=== PATIENT | female | born 1965 | race Caucasian/White ===

== ENCOUNTER 2017-11-28 13:25 | Observation (INO) | payer OTHER ==
[2017-11-28 13:38] VITALS: BMI 28.1
[2017-11-28] MEDS ORDERED: KETOROLAC TROMETHAMINE 30 MG/1 ML VIAL IVPUSH ONE (14:04)
[2017-11-28] MEDS ORDERED: METOCLOPRAMIDE HCL INJECTION 10 MG/2 ML VIAL IVPB ONE (14:04)
--- NOTE | 2017-11-28 14:23 | PDOC ---
History of Present Illness - General Chief Complaint: Headache Stated Complaint: HEADACHE, THROAT PAIN Time Seen by Provider: 11/28/17 13:49 History Source: Patient - History of Present Illness Timing/Duration: reports: other Severity: Yes: severe Past History - Past Medical History Allergies/Adverse Reactions: Allergies Allergy/AdvReac Type Severity Reaction Status Date / Time No Known Allergies Allergy Verified 11/28/17 13:34 Home Medications: Ambulatory Orders Methimazole 10 mg PO TID 11/28/17 Metoprolol Succinate 25 mg PO DAILY 11/28/17 COPD: No - Suicide/Smoking/Psychosocial Hx Smoking History: Never smoked Information on smoking cessation initiated: No Hx Alcohol Use: No Drug/Substance Use Hx: No Substance Use Type: None Hx Substance Use Treatment: No Review of Systems - Review of Systems Constitutional: No: Chills, Fever HEENTM: No: Blurred Vision ABD/GI: No: Nausea, Vomiting Neurological: Yes: Headache. No: Dizziness *Physical Exam - Vital Signs Last Vital Signs Temp Pulse Resp BP Pulse Ox 97.8 F 85 18 121/79 100 11/28/17 13:36 11/28/17 13:36 11/28/17 13:36 11/28/17 13:36 11/28/17 13:36 - Physical Exam General Appearance: Yes: Appropriately Dressed. No: Apparent Distress HEENT: positive: EOMI, VANDANA Neck: positive: Supple, Other (mod swelling over L thyroid). negative: Tender, Lymphadenopathy (R), Lymphadenopathy (L) Respiratory/Chest: negative: Respiratory Distress Integumentary: positive: Dry, Warm Neurologic: positive: mobile disc jockey II-XII NML intact, Fully Oriented, Alert, Normal Mood/ Affect, Motor Strength 5/5, Finger to Nose (no nystagmus, Shaji intact, no ataxia , no drift). negative: Confused, Disoriented ED Treatment Course - LABORATORY CBC & Chemistry Diagram: 11/28/17 14:45 11/28/17 14:45 - RADIOLOGY Radiology Studies Ordered: Category Date Time Status HEAD CT WITHOUT CONTRAST [CT] Stat CT Scan 11/28/17 14:04 Ordered Medical Decision Making - Medical Decision Making 11/28/17 14:14 42-year-old female, history of HTN, hyperthyroid on methimazole, here with headache. Patient complain of severe pain to occipital area and top of head x days. Describes pain as tight in nature, constant, 10 out of 10 with no exacerbating or alleviating factors. States she also has numbness of lower half of her face. No pain with chewing, visual disturbance, photophobia, neck stiffness, fever, n/v, focal weakness or unexplained weight loss. Taking anything for pain. No history of similar pain in the past. States she was started on methimazole 2 weeks ago after blood work per pt. Thinks that GORDON may be possible side effects See exam New onset GORDON in 52 year old R/o TA though story not great vs intracranial pathology, less likely trigeminal neuralgia, no infectious sxs, ?tension given mostly diffuse nature of pain, less likely migraine Uncomfortable in ED but stable with intact neurological exam -pain control -labs including ESR -CT head -reassess Neck swelling Moderate swelling over L side of neck over site of thyroid Pt now reports chronic sore throat/dysphagia w/ neck swelling >1 yr, no unexplained weight loss Started on methimazole 2 weeks ago after blood work by Dr Patricia per pt Denies anxiety, numbness, tremor, palpitations, heat intolerance, increased per private perspiration weight loss or increased appetite -thyroid test/US in ED 11/28/17 15:59 Radiologist called to report that for the past 6 months, they no longer perform thyroid ultrasounds through the ER. Will scan neck instead 11/28/17 16:32 TSH less than 0.01. T3 and T4 pending. Pt states she is compliant w/ her meds. Rest of labs unremarkable. CT head read as negative. CT neck pending. Patient improved with meds. 11/28/17 16:54 CT soft tissue neck read as approximately 5.743.7 cm left thyroid lobe enlargement with soft tissue and cystic components. Also seen is mild contralateral tracheal displacement. No substernal extension as per radiology. Given findings and significantly decreased TSH, will contact PMD to discuss dispo 11/28/17 17:59 After multiple pages to Dr Patricia, no call back. Case d/w Dr Conde who accepted pt. Recommended consult to Dr Rosa of oncology and endocrine. Pt stable w/ no stridor/resp distress. GORDON since improved per pt *DC/Admit/Observation/Transfer Diagnosis at time of Disposition: Headache, Thyroid mass - Discharge Dispostion Condition at time of disposition: Fair Admit: Yes - Referrals - Patient Instructions - Post Discharge Activity
[2017-11-28] MEDS ORDERED: KETOROLAC TROMETHAMINE 30 MG/1 ML VIAL ONE (14:50)
[2017-11-28] MEDS ORDERED: METOCLOPRAMIDE HCL INJECTION 10 MG/2 ML VIAL ONE (14:50)
[2017-11-28 14:52] LABS: BASO % 0.6 % (0-2.0); EOS % 1.5 % (0-4.5); HEMATOCRIT 38.8 % (32.4-45.2); HEMOGLOBIN 13.3 GM/dL (10.7-15.3); LYMPH % 34.4 % (8-40); MCH 27.1 pg (25.7-33.7); MCHC 34.2 g/dl (32.0-36.0); MEAN CELL VOLUME 79.2 fl (80-96); MEAN PLT VOLUME 8.5 fl (7.5-11.1); NEUT % 57.5 % (42.8-82.8); PLATELET COUNT 285 K/MM3 (134-434); RDW 13.3 % (11.6-15.6); WHITE BLOOD COUNT 5.7 K/mm3 (4.0-10.0)
[2017-11-28 15:19] LABS: ALBUMIN 3.7 g/dl (3.4-5.0); ALK PHOS 96 U/L (45-117); ANION GAP 2 (8-16); BILIRUBIN,TOTAL 0.2 mg/dL (0.2-1.0); BLOOD UREA NITROGEN 17 mg/dL (7-18); CALCIUM 9.2 mg/dL (8.5-10.1); CHLORIDE 109 mmol/L (98-107); CO2 28 mmol/L (21-32); CREATININE 0.6 mg/dL (0.55-1.02); GLUCOSE,RANDOM 98 mg/dL (74-106); SGPT/ALT 31 U/L (12-78); SODIUM 139 mmol/L (136-145); TOT PROT 7.2 g/dl (6.4-8.2)
[2017-11-28 15:20] LABS: POTASSIUM 4.6 mmol/L (3.5-5.1); SGOT/AST 22 U/L (15-37)
--- NOTE | 2017-11-28 21:11 | CONSULT ---
Consult - text type - Consultation Consultation Note: 52 y/opatient with recently diagnosed hyperthyroidism, just started methimazole recently, comes in with headaches. CT head is unrevaling. CT soft tissue neck read as approximately 5.743.7 cm left thyroid lobe enlargement with soft tissue and cystic components. Also seen is mild contralateral tracheal displacement. No substernal extension. Allergies Allergy/AdvReac Type Severity Reaction Status Date / Time No Known Allergies Allergy Verified 11/28/17 13:34 Home Medications: Ambulatory Orders Methimazole 10 mg PO TID 11/28/17 Metoprolol Succinate 25 mg PO DAILY 11/28/17 - Suicide/Smoking/Psychosocial Hx Smoking History: Never smoked - Vital Signs Last Vital Signs Temp Pulse Resp BP Pulse Ox 97.8 F 85 18 121/79 100 11/28/17 13:36 11/28/17 13:36 11/28/17 13:36 11/28/17 13:36 11/28/17 13:36 - Physical Exam General Appearance: Yes: Appropriately Dressed. No: Apparent Distress Neck: positive: Supple, Other (mod swelling over L thyroid). negative: Tender, Lymphadenopathy (R), Lymphadenopathy (L) Respiratory/Chest: negative: Respiratory Distress Cardiac--S1, S2 regular, no m/r/g Chest-- CTA Neurologic: positive: floorperson II-XII NML intact, Fully Oriented, Alert, Normal Mood/ Affect, Motor Strength 5/5, Finger to Nose (no nystagmus, Shaji intact, no ataxia , no drift). negative: Confused, Disoriented A/P 42-year-old female, history of HTN, hyperthyroid on methimazole, here with headache. New onset GORDON in [address] head unrevealing will need NEuro consult / ? MRI Thyromegaly--left lobe Pt now reports chronic sore throat/dysphagia w/ neck swelling >1 yr, no unexplained weight loss Started on methimazole 2 weeks ago after blood work by Dr Patricia per pt TSH less than 0.01. T3 and T4 pending. CT soft tissue neck read as approximately 5.743.7 cm left thyroid lobe enlargement with soft tissue and cystic components. Also seen is mild contralateral tracheal displacement. No substernal extension as per radiology. will get endocrine consult-- Dr. Huntley
--- NOTE | 2017-11-28 21:51 | HP ---
Admitting History and Physical - Primary Care Physician PCP: Frank Conde - Admission History of Present Illness: 42-year-old female, history of HTN, hyperthyroid on methimazole, here with headache. Patient complain of severe pain to occipital area and top of head x days. Describes pain as tight in nature, constant, 10 out of 10 with no exacerbating or alleviating factors. States she also has numbness of lower half of her face. No pain with chewing, visual disturbance, photophobia, neck stiffness, fever, n/v, focal weakness or unexplained weight loss. Taking anything for pain. No history of similar pain in the past. States she was started on methimazole 2 weeks ago after blood work per pt. Thinks that GORDON may be possible side effects reading further er notes, dr soares didnt believe that pt needed to be admitted ...he said dc with fu dr pierce er attending not comfortable sending pt home - Past Medical History Cardiovascular: Yes: HTN Endocrine: Yes: Hyperthyroidism - Smoking History Smoking history: Never smoked - Alcohol/Substance Use Hx Alcohol Use: No Home Medications - Allergies Allergies/Adverse Reactions: Allergies Allergy/AdvReac Type Severity Reaction Status Date / Time No Known Allergies Allergy Verified 11/28/17 13:34 - Home Medications Home Medications: Ambulatory Orders Methimazole 10 mg PO TID 11/28/17 Metoprolol Succinate 25 mg PO DAILY 11/28/17 Amox-Tr/K Cl [Augmentin 875-125mg Tablet -] 1 tab PO BID@0800,1730 5 Days #20 tablet 11/30/17 Aripiprazole [Abilify -] 2 mg PO DAILY #30 tablet 11/30/17 Physical Examination Vital Signs: Vital Signs Temperature 98.2 F 11/28/17 19:53 Pulse Rate 60 11/28/17 19:53 Respiratory Rate 20 11/28/17 19:53 Blood Pressure 133/73 11/28/17 19:53 O2 Sat by Pulse Oximetry (%) 96 11/28/17 20:28 Constitutional: Yes: No Distress HENT: Yes: Atraumatic Neck: Yes: Supple, Thyromegaly Cardiovascular: Yes: Regular Rate and Rhythm Respiratory: Yes: CTA Bilaterally Gastrointestinal: Yes: Normal Bowel Sounds Extremities: Yes: WNL Edema: No Peripheral Pulses WNL: Yes Neurological: Yes: Alert, Oriented Labs: CBC, BMP 11/28/17 14:45 11/28/17 14:45 Problem List - Problems (1) Hyperthyroidism Assessment/Plan: on meds get endocrine involve Code(s): E05.90 - THYROTOXICOSIS, UNSP WITHOUT THYROTOXIC CRISIS OR STORM (2) HTN (hypertension) Assessment/Plan: on meds stable Code(s): I10 - ESSENTIAL (PRIMARY) HYPERTENSION (3) Headache Assessment/Plan: prn tylenol Code(s): R51 - HEADACHE (4) Thyroid mass Assessment/Plan: need work up Code(s): E07.9 - DISORDER OF THYROID, UNSPECIFIED Assessment/Plan Laboratory Tests 11/28/17 11/28/17 11/28/17 14:45 14:45 14:45 WBC 5.7 RBC 4.90 Hgb 13.3 Hct 38.8 MCV 79.2 L MCH 27.1 MCHC 34.2 RDW 13.3 Plt Count 285 MPV 8.5 Neutrophils % 57.5 Lymphocytes % 34.4 D Monocytes % 6.0 Eosinophils % 1.5 Basophils % 0.6 ESR 12 Sodium Potassium Chloride Carbon Dioxide Anion Gap BUN Creatinine Creat Clearance w eGFR Random Glucose Calcium Total Bilirubin AST ALT Alkaline Phosphatase Total Protein Albumin TSH Resin T3 Uptake Serum , Qual Negative 11/28/17 11/28/17 11/28/17 14:45 15:00 15:05 WBC RBC Hgb Hct MCV MCH MCHC RDW Plt Count MPV Neutrophils % Lymphocytes % Monocytes % Eosinophils % Basophils % ESR Sodium 139 Potassium 4.6 Chloride 109 H Carbon Dioxide 28 Anion Gap 2 L BUN 17 Creatinine 0.6 Creat Clearance w eGFR > 60 Random Glucose 98 Calcium 9.2 Total Bilirubin 0.2 D AST 22 ALT 31 Alkaline Phosphatase 96 Total Protein 7.2 Albumin 3.7 TSH < 0.01 L Resin T3 Uptake 37.5 Serum , Qual Active Medications Generic Name Dose Route Start Last Admin Trade Name Freq PRN Reason Stop Dose Admin Amoxicillin/Clavulanate Potassium 1 tab 11/29/17 17:30 11/30/17 17:17 Augmentin - 875mg Tablet PO 1 tab BID@0800,1730 CELY Administration Aripiprazole 2 mg 11/29/17 19:00 11/30/17 09:04 Abilify PO 2 mg DAILY CELY Administration Methimazole 10 mg 11/28/17 22:00 11/30/17 13:16 Tapazole - PO 10 mg TID CELY Administration Metoprolol Succinate 25 mg 11/29/17 10:00 11/30/17 09:04 Toprol Xl - PO 25 mg DAILY CELY Administration
[2017-11-28] MEDS: METHIMAZOLE 10 MG TABLET (FP) PO SCH (23:11)
[2017-11-29] MEDS: METHIMAZOLE 10 MG TABLET (FP) PO SCH ×3 (06:16→21:36)
[2017-11-29] MEDS: metoPROLOL SUCCINATE 25 MG TAB.SR.24H (FP) PO SCH (09:36)
--- NOTE | 2017-11-29 15:45 | CON.ID ---
Consult Consult Specialty:: infectious diseases Reason for Consultation:: thyroididts,neck pain - History of Present Illness Chief Complaint: pain in the throat,headaches History of Present Illness: 42-year-old female, history of HTN, hyperthyroid on methimazole, here with headache. Patient complain of severe pain to occipital area and top of head x days. Describes pain as tight in nature, constant, 10 out of 10 with no exacerbating or alleviating factors. States she also has numbness of lower half of her face. No pain with chewing, visual disturbance, photophobia, neck stiffness, fever, n/v, focal weakness or unexplained weight loss. Taking anything for pain. No history of similar pain in the past. States she was started on methimazole 2 weeks ago after blood work per pt. Thinks that GORDON may be possible side effects other complain that the patient has is neck pain and she has swelling on the left side of the neck she says she feels temp changes in her teeth but she has been to the dentist who said everything was ok also c/o of cough - History Source History Provided By: Patient Limitations to Obtaining History: Language Barrier - Past Medical History Cardio/Vascular: Yes: HTN Endocrine: Yes: Hyperthyroidism - Alcohol/Substance Use Hx Alcohol Use: No - Smoking History Smoking history: Never smoked Home Medications - Allergies Allergies/Adverse Reactions: Allergies Allergy/AdvReac Type Severity Reaction Status Date / Time No Known Allergies Allergy Verified 11/28/17 13:34 - Home Medications Home Medications: Ambulatory Orders Amox-Tr/K Cl [Augmentin 875-125mg Tablet -] 1 tab PO BID@0800,1730 5 Days #20 tablet 11/30/17 Aripiprazole [Abilify -] 2 mg PO DAILY #30 tablet 11/30/17 Amoxicillin/Potassium Clav [Augmentin 875-125 Tablet] 1 each PO BID #8 tablet Aripiprazole [Abilify -] 2 mg PO DAILY #7 tablet 12/01/17 Methimazole 10 mg PO TID #21 tablet 12/01/17 Methimazole [Tapazole -] 10 mg PO TID #90 tablet 12/01/17 Metoprolol Succinate 25 mg PO DAILY #30 tab.er.24h 12/01/17 Metoprolol Succinate [Toprol XL -] 25 mg PO DAILY #7 tab.sr.24h 12/01/17 Review of Systems - Review of Systems Constitutional: reports: No Symptoms Eyes: reports: No Symptoms HENT: reports: No Symptoms Neck: reports: Lumps (left side of the neck) Cardiovascular: reports: No Symptoms Respiratory: reports: Cough Gastrointestinal: reports: No Symptoms Musculoskeletal: reports: No Symptoms Neurological: reports: Headache Endocrine: reports: No Symptoms Hematology/Lymphatic: reports: No Symptoms Psychiatric: reports: No Symptoms Physical Exam Vital Signs: Vital Signs Temperature 98.5 F 11/29/17 13:08 Pulse Rate 66 11/29/17 13:08 Respiratory Rate 17 11/29/17 13:08 Blood Pressure 109/58 11/29/17 13:08 O2 Sat by Pulse Oximetry (%) 97 11/29/17 05:51 Constitutional: Yes: Well Nourished, Calm, Mild Distress Eyes: Yes: Conjunctiva Clear HENT: Yes: Atraumatic, Other Neck: Yes: Supple, Other (sweling on the left side of the neck) Cardiovascular: Yes: Regular Rate and Rhythm Respiratory: Yes: Regular, CTA Bilaterally Gastrointestinal: Yes: Normal Bowel Sounds, Soft Musculoskeletal: Yes: WNL Extremities: Yes: WNL Neurological: Yes: Alert, Oriented Psychiatric: Yes: Alert, Oriented Labs: CBC, BMP 11/28/17 14:45 11/28/17 14:45 Imaging - Results Cat Scan: Report Reviewed, Image Reviewed Assessment/Plan Problem List - Problems (1) Hyperthyroidism Assessment/Plan: on meds get endocrine involve Code(s): E05.90 - THYROTOXICOSIS, UNSP WITHOUT THYROTOXIC CRISIS OR STORM (2) HTN (hypertension) Assessment/Plan: on meds stable Code(s): I10 - ESSENTIAL (PRIMARY) HYPERTENSION (3) Headache Assessment/Plan: prn tylenol Code(s): R51 - HEADACHE (4) Thyroid mass Assessment/Plan: need work up Code(s): E07.9 - DISORDER OF THYROID, UNSPECIFIED plan will order a chest xray will start patient on augmentin endo to see the patient neuro to see the patient for headache
--- NOTE | 2017-11-29 17:36 | PN ---
Mental Health Exam - Mental Status Exam Alert and Oriented to: Time, Place, Person Cognitive Function: Grossly Intact Patient Appearance: Unkempt Mood: Apprehensive, Expansive Affect: Appropriate, Mood Congruent Patient Behavior: Distractible, Talkative, Cooperative Speech Pattern: Perseverating (ACCENTED, FOCUSED ON NECK SWELLING, BODY COMPLAINTS. ) Voice Loudness: Moderately Loud (UKRAINE ACCENT. ) Thought Process: Circumstantial, Tangential, Goal Oriented Thought Disorder: Delusional (THAT THE SUN IS CAUSING HER ILLNESS. ) Hallucinations: None Suicidal Ideation: None Homicidal Ideation: None
--- NOTE | 2017-11-29 17:42 | PN ---
Progress Note, Physician Chief Complaint: :" I CANNOT STAY IN THE SUN, LOOK AT MY NECK AND HEAD". "I CANT BE GOING BACK TO [facility] [place] PSYCHI[facility]ST, NEED ONE NEAR HERE". History of Present Illness: mS Shell IS A 42 yo [place] female who resident in [place], unemployed except cleaning house when feeling well. She has a history of being followed by Dr Rodriguez in [place], . Was treated with Abilify 2mg for Bipolar disorder , No admissions to psychiatry. Little social supports. Sleep is ok. admitted after some throbbing occipital headaches, no alchol or substance use. Medical history of HTN, Hyperthyroidism and thyroid mass. - Current Medication List Current Medications: Active Medications Amoxicillin/Clavulanate Potassium (Augmentin - 875mg Tablet) 1 tab PO BID@0800, 1730 [facility] Methimazole (Tapazole -) 10 mg PO TID [facility] Last Admin: 11/29/17 13:19 Dose: 10 mg Metoprolol Succinate (Toprol Xl -) 25 mg PO DAILY [facility] Last Admin: 11/29/17 09:36 Dose: 25 mg - Objective Vital Signs: Vital Signs Temperature 98.5 F 11/29/17 13:08 Pulse Rate 66 11/29/17 13:08 Respiratory Rate 17 11/29/17 13:08 Blood Pressure 109/58 11/29/17 13:08 O2 Sat by Pulse Oximetry (%) 96 11/29/17 13:00 Psychiatric: Yes: WNL Labs: CBC, BMP 11/28/17 14:45 11/28/17 14:45 Problem List - Problems (1) Bipolar 1 disorder, depressed, mild Code(s): F31.31 - BIPOLAR DISORDER, CURRENT EPISODE DEPRESSED, MILD Assessment/Plan Restart abilify 2mg per day for delusional content, past history of bipolar disorder. Follow up with psychiatry after discharge.
[2017-11-29] MEDS: AMOX TR/POT CLAV 875MG/125MG TABLETS (FP) PO SCH (17:44)
--- NOTE | 2017-11-29 18:57 | PN ---
Progress Note, Physician - Current Medication List Current Medications: Active Medications Amoxicillin/Clavulanate Potassium (Augmentin - 875mg Tablet) 1 tab PO BID@0800, 1730 [facility] Last Admin: 11/29/17 17:44 Dose: 1 tab Aripiprazole (Abilify) 2 mg PO DAILY [facility] Methimazole (Tapazole -) 10 mg PO TID [facility] Last Admin: 11/29/17 13:19 Dose: 10 mg Metoprolol Succinate (Toprol Xl -) 25 mg PO DAILY [facility] Last Admin: 11/29/17 09:36 Dose: 25 mg - Objective Vital Signs: Vital Signs Temperature 98.5 F 11/29/17 13:08 Pulse Rate 66 11/29/17 13:08 Respiratory Rate 17 11/29/17 13:08 Blood Pressure 109/58 11/29/17 13:08 O2 Sat by Pulse Oximetry (%) 96 11/29/17 13:00 Constitutional: Yes: No Distress Eyes: Yes: Conjunctiva Clear HENT: Yes: Atraumatic Neck: Yes: Thyromegaly Cardiovascular: Yes: Regular Rate and Rhythm Respiratory: Yes: CTA Bilaterally Gastrointestinal: Yes: Normal Bowel Sounds Extremities: Yes: WNL Neurological: Yes: Alert, Oriented Labs: CBC, BMP 11/28/17 14:45 11/28/17 14:45 Problem List - Problems (1) Hyperthyroidism Assessment/Plan: on meds get endocrine involve Code(s): E05.90 - THYROTOXICOSIS, UNSP WITHOUT THYROTOXIC CRISIS OR STORM (2) HTN (hypertension) Assessment/Plan: on meds stable Code(s): I10 - ESSENTIAL (PRIMARY) HYPERTENSION (3) Headache Assessment/Plan: prn tylenol Code(s): R51 - HEADACHE (4) Thyroid mass Assessment/Plan: need work up Code(s): E07.9 - DISORDER OF THYROID, UNSPECIFIED (5) Bipolar 1 disorder, depressed, mild Assessment/Plan: on abilify now Code(s): F31.31 - BIPOLAR DISORDER, CURRENT EPISODE DEPRESSED, MILD
[2017-11-29] MEDS ORDERED: PT OWN MED DRAWER 7, Y5N ONE (19:54)
--- NOTE | 2017-11-29 20:25 | CON.NEURO ---
Consult Consult Specialty:: NEUROLOGY-RASHEEDA BEAVER Reason for Consultation:: Headche - History of Present Illness History of Present Illness: 42-year-old female, history of HTN, hyperthyroid on methimazole, here with headache. Patient complain of severe pain to occipital area and top of head x days. Describes pain as tight in nature, interemittent, occurs 4-8x/day, 10 out of 10 with no exacerbating or alleviating factors. States she also has numbness of lower half of her face. No pain with chewing, visual disturbance, photophobia, neck stiffness, fever, n/v, focal weakness or unexplained weight loss. Taking anything for pain. No history of similar pain in the past. States she was started on methimazole 2 weeks ago after blood work per pt. .She began having headaches 3 years ago-frontal, pressure type, 5/10 intensity without photo/phonophobia. - Past Medical History Cardio/Vascular: Yes: HTN Endocrine: Yes: Hyperthyroidism - Alcohol/Substance Use Hx Alcohol Use: No - Smoking History Smoking history: Never smoked Home Medications - Allergies Allergies/Adverse Reactions: Allergies Allergy/AdvReac Type Severity Reaction Status Date / Time No Known Allergies Allergy Verified 11/28/17 13:34 - Home Medications Home Medications: Ambulatory Orders Methimazole 10 mg PO TID 11/28/17 Metoprolol Succinate 25 mg PO DAILY 11/28/17 Physical Exam-Neuro Vital Signs: Vital Signs Temperature 98.0 F 11/29/17 18:00 Pulse Rate 75 11/29/17 18:00 Respiratory Rate 16 11/29/17 18:00 Blood Pressure 118/78 11/29/17 18:00 O2 Sat by Pulse Oximetry (%) 96 11/29/17 13:00 Labs: CBC, BMP 11/28/17 14:45 11/28/17 14:45 - Neuro Exam DTR's: 2+ Left Achilles, 2+ Right Achilles (Bilat knee jerks- 3+), 3+ Left Bicep , 3+ Right Bicep, 3+ Left Tricep, 3+ Right Tricep, 3+ Left Brachioradialis, 3+ Right Brachioradialis Motor Strength: 5/5: Left Arm, Right Arm, Left Leg, Right Leg Imaging - Results Cat Scan: Report Reviewed (CT head- mild sphenoid sinus thickening only) Assessment/Plan Pt. with difficult to characterize nuchal acute onset episodic headaches. Her exam reveals brisk reflexes in all 4 ext.otherwise no focality. DDX includes upeer cspine process, occipital neuralgia??, myelopthy??.? retropharyngeal process Plan: MRI brain/Cspine ESR/CRP/TJ/Anti DS DNA Depacon 500mg ivss q8hrs. Will follow, Thank you. Canelo Barahona MD
[2017-11-29] MEDS: ARIPiprazole 2 MG TABLET PO SCH (21:35)
[2017-11-30] MEDS: METHIMAZOLE 10 MG TABLET (FP) PO SCH ×3 (05:54→21:39)
--- NOTE | 2017-11-30 08:31 | PN ---
Progress Note (short form) - Note Progress Note: 42-year-old female, history of HTN, hyperthyroid on methimazole, here with headache. Patient complain of severe pain to occipital area and top of head x days. Describes pain as tight in nature, interemittent, occurs 4-8x/day, 10 out of 10 with no exacerbating or alleviating factors. States she also has numbness of lower half of her face. No pain with chewing, visual disturbance, photophobia, neck stiffness, fever, n/v, focal weakness or unexplained weight loss. Taking anything for pain. No history of similar pain in the past. States she was started on methimazole 2 weeks ago after blood work per pt. .She began having headaches 3 years ago-frontal, pressure type, 5/10 intensity without photo/phonophobia. FU : states GORDON worse with stress no focal Sx - Past Medical History Cardio/Vascular: Yes: HTN Endocrine: Yes: Hyperthyroidism - Alcohol/Substance Use Hx Alcohol Use: No - Smoking History Smoking history: Never smoked Home Medications - Allergies Allergies/Adverse Reactions: Allergies Allergy/AdvReac Type Severity Reaction Status Date / Time No Known Allergies Allergy Verified 11/28/17 13:34 - Home Medications Home Medications: Ambulatory Orders Methimazole 10 mg PO TID 11/28/17 Metoprolol Succinate 25 mg PO DAILY 11/28/17 Physical Exam-Neuro Vital Signs: Vital Signs Temperature 98.0 F 11/29/17 18:00 Pulse Rate 75 11/29/17 18:00 Respiratory Rate 16 11/29/17 18:00 Blood Pressure 118/78 11/29/17 18:00 O2 Sat by Pulse Oximetry (%) 96 11/29/17 13:00 Labs: - Neuro Exam DTR's: 2+ Left Achilles, 2+ Right Achilles (Bilat knee jerks- 3+), 3+ Left Bicep , 3+ Right Bicep, 3+ Left Tricep, 3+ Right Tricep, 3+ Left Brachioradialis, 3+ Right Brachioradialis Motor Strength: 5/5: Left Arm, Right Arm, Left Leg, Right Leg Imaging - Results Cat Scan: Report Reviewed (CT head- mild sphenoid sinus thickening only) Assessment/Plan Pt. with difficult to characterize nuchal acute onset episodic headaches. Her exam reveals brisk reflexes in all 4 ext.otherwise no focality. DX tension type GORDON, CT HD (-), can get MRI BRAIN if (-), can [facility] as outpt; consider PSych input given anxiety issues Dr Yu
[2017-11-30] MEDS ORDERED: PT OWN MED DRAWER 7, Y5N ONE ×2 (08:36→20:47)
[2017-11-30] MEDS: AMOX TR/POT CLAV 875MG/125MG TABLETS (FP) PO SCH ×2 (09:04→17:17)
[2017-11-30] MEDS: ARIPiprazole 2 MG TABLET PO SCH (09:04)
[2017-11-30] MEDS: metoPROLOL SUCCINATE 25 MG TAB.SR.24H (FP) PO SCH (09:04)
--- NOTE | 2017-11-30 13:37 | PN ---
Progress Note, Physician History of Present Illness: still c/o of headaches today the complete leg is hurting - Current Medication List Current Medications: Active Medications Amoxicillin/Clavulanate Potassium (Augmentin - 875mg Tablet) 1 tab PO BID@0800, 1730 [facility] Last Admin: 11/30/17 09:04 Dose: 1 tab Aripiprazole (Abilify) 2 mg PO DAILY [facility] Last Admin: 11/30/17 09:04 Dose: 2 mg Methimazole (Tapazole -) 10 mg PO TID [facility] Last Admin: 11/30/17 13:16 Dose: 10 mg Metoprolol Succinate (Toprol Xl -) 25 mg PO DAILY [facility] Last Admin: 11/30/17 09:04 Dose: 25 mg - Objective Vital Signs: Vital Signs Temperature 98.3 F 11/30/17 10:00 Pulse Rate 68 11/30/17 10:00 Respiratory Rate 16 11/30/17 10:00 Blood Pressure 117/64 11/30/17 10:00 O2 Sat by Pulse Oximetry (%) 96 11/30/17 12:41 Constitutional: Yes: Calm, Mild Distress Cardiovascular: Yes: Regular Rate and Rhythm Respiratory: Yes: Regular, CTA Bilaterally Gastrointestinal: Yes: Normal Bowel Sounds Musculoskeletal: Yes: WNL Extremities: Yes: Other (leg pain) Neurological: Yes: Alert, Oriented Psychiatric: Yes: Alert, Oriented Labs: CBC, BMP 11/28/17 14:45 11/28/17 14:45 - ....Imaging Chest X-ray: Report Reviewed, Image Reviewed Assessment/Plan Problem List - Problems (1) Hyperthyroidism Assessment/Plan: on meds get endocrine involve Code(s): E05.90 - THYROTOXICOSIS, UNSP WITHOUT THYROTOXIC CRISIS OR STORM (2) HTN (hypertension) Assessment/Plan: on meds stable Code(s): I10 - ESSENTIAL (PRIMARY) HYPERTENSION (3) Headache Assessment/Plan: prn tylenol Code(s): R51 - HEADACHE (4) Thyroid mass Assessment/Plan: need work up Code(s): E07.9 - DISORDER OF THYROID, UNSPECIFIED plan continue current mgmt patient going for inaging studies of the brain--mri neuro on czase rest as per the team
--- NOTE | 2017-11-30 18:18 | PN ---
Progress Note, Physician - Current Medication List Current Medications: Active Medications Amoxicillin/Clavulanate Potassium (Augmentin - 875mg Tablet) 1 tab PO BID@0800, 1730 [facility] Last Admin: 11/30/17 17:17 Dose: 1 tab Aripiprazole (Abilify) 2 mg PO DAILY [facility] Last Admin: 11/30/17 09:04 Dose: 2 mg Methimazole (Tapazole -) 10 mg PO TID [facility] Last Admin: 11/30/17 13:16 Dose: 10 mg Metoprolol Succinate (Toprol Xl -) 25 mg PO DAILY [facility] Last Admin: 11/30/17 09:04 Dose: 25 mg - Objective Vital Signs: Vital Signs Temperature 98.9 F 11/30/17 13:45 Pulse Rate 64 11/30/17 13:45 Respiratory Rate 18 11/30/17 13:45 Blood Pressure 130/67 11/30/17 13:45 O2 Sat by Pulse Oximetry (%) 96 11/30/17 12:41 Constitutional: Yes: No Distress HENT: Yes: Atraumatic Neck: Yes: Supple, Thyromegaly Cardiovascular: Yes: Regular Rate and Rhythm Respiratory: Yes: CTA Bilaterally Gastrointestinal: Yes: Normal Bowel Sounds Extremities: Yes: WNL Edema: No Neurological: Yes: Alert, Oriented Labs: CBC, BMP 11/28/17 14:45 11/28/17 14:45 Problem List - Problems (1) Hyperthyroidism Assessment/Plan: on meds endocrine consult Code(s): E05.90 - THYROTOXICOSIS, UNSP WITHOUT THYROTOXIC CRISIS OR STORM (2) HTN (hypertension) Assessment/Plan: on meds stable Code(s): I10 - ESSENTIAL (PRIMARY) HYPERTENSION (3) Headache Assessment/Plan: prn tylenol getting mri done Code(s): R51 - HEADACHE (4) Thyroid mass Assessment/Plan: need work up Code(s): E07.9 - DISORDER OF THYROID, UNSPECIFIED (5) Bipolar 1 disorder, depressed, mild Assessment/Plan: on abilify now Code(s): F31.31 - BIPOLAR DISORDER, CURRENT EPISODE DEPRESSED, MILD
[2017-12-01] MEDS: VALPROATE SODIUM 500 MG/5 ML VIAL IVPB SCH ×4 (00:38→11:30)
[2017-12-01] MEDS: METHIMAZOLE 10 MG TABLET (FP) PO SCH ×2 (05:36→14:46)
--- NOTE | 2017-12-01 08:38 | PN ---
Progress Note (short form) - Note Progress Note: 42-year-old female, history of HTN, hyperthyroid on methimazole, here with headache. Patient complain of severe pain to occipital area and top of head x days. Describes pain as tight in nature, interemittent, occurs 4-8x/day, 10 out of 10 with no exacerbating or alleviating factors. States she also has numbness of lower half of her face. No pain with chewing, visual disturbance, photophobia, neck stiffness, fever, n/v, focal weakness or unexplained weight loss. Taking anything for pain. No history of similar pain in the past. States she was started on methimazole 2 weeks ago after blood work per pt. .She began having headaches 3 years ago-frontal, pressure type, 5/10 intensity without photo/phonophobia. FU : states GORDON worse with stress , mutiple complaints+, anxiety, seen by PSYCH MRI B P no focal Sx - Past Medical History Cardio/Vascular: Yes: HTN Endocrine: Yes: Hyperthyroidism - Alcohol/Substance Use Hx Alcohol Use: No - Smoking History Smoking history: Never smoked Home Medications - Allergies Allergies/Adverse Reactions: Allergies Allergy/AdvReac Type Severity Reaction Status Date / Time No Known Allergies Allergy Verified 11/28/17 13:34 - Home Medications Home Medications: Ambulatory Orders Methimazole 10 mg PO TID 11/28/17 Metoprolol Succinate 25 mg PO DAILY 11/28/17 Physical Exam-Neuro Vital Signs: Vital Signs Temperature 97.6 F 12/01/17 06:00 Pulse Rate 59 L 12/01/17 06:00 Respiratory Rate 20 12/01/17 06:00 Blood Pressure 115/59 12/01/17 06:00 O2 Sat by Pulse Oximetry (%) 96 12/01/17 05:00 Labs: - Neuro Exam DTR's: 2+ Left Achilles, 2+ Right Achilles (Bilat knee jerks- 3+), 3+ Left Bicep , 3+ Right Bicep, 3+ Left Tricep, 3+ Right Tricep, 3+ Left Brachioradialis, 3+ Right Brachioradialis Motor Strength: 5/5: Left Arm, Right Arm, Left Leg, Right Leg Imaging - Results Cat Scan: Report Reviewed (CT head- mild sphenoid sinus thickening only) Assessment/Plan Pt. with difficult to characterize nuchal acute onset episodic headaches. Her exam reveals brisk reflexes in all 4 ext.otherwise no focality. DX tension type GORDON, CT HD (-), started depakon for GORDON and add on TORADOL MRI B P FU PSych input given anxiety issues Dr Yu
[2017-12-01] MEDS ORDERED: KETOROLAC TROMETHAMINE 30 MG/1 ML VIAL IVPUSH PRN (09:09)
--- NOTE | 2017-12-01 10:28 | DS ---
Physical Examination Vital Signs: Vital Signs Temperature 97.6 F 12/01/17 06:00 Pulse Rate 59 L 12/01/17 06:00 Respiratory Rate 20 12/01/17 06:00 Blood Pressure 115/59 12/01/17 06:00 O2 Sat by Pulse Oximetry (%) 96 12/01/17 05:00 Constitutional: Yes: No Distress HENT: Yes: Atraumatic Neck: Yes: Supple, Thyromegaly Cardiovascular: Yes: Regular Rate and Rhythm Respiratory: Yes: CTA Bilaterally Gastrointestinal: Yes: Normal Bowel Sounds Extremities: Yes: WNL Edema: No Peripheral Pulses WNL: Yes Neurological: Yes: Alert, Oriented Labs: CBC, BMP 11/28/17 14:45 11/28/17 14:45 Discharge Summary Reason For Visit: HEADACHE; THRYROID LUMP Current Active Problems Bipolar 1 disorder, depressed, mild (Acute) HTN (hypertension) (Acute) Headache (Acute) Hyperthyroidism (Acute) Thyroid mass (Acute) Condition: Fair - Instructions Referrals: Frank Conde MD [Staff Physician] - Pastora Barahona MD [Staff Physician] - Srini Rosa MD [Staff Physician] - Mounika Huntley MD [Staff Physician] - - Home Medications Comprehensive Discharge Medication List: Ambulatory Orders Methimazole 10 mg PO TID 11/28/17 Metoprolol Succinate 25 mg PO DAILY 11/28/17 Amox-Tr/K Cl [Augmentin 875-125mg Tablet -] 1 tab PO BID@0800,1730 5 Days #20 tablet 11/30/17 Aripiprazole [Abilify -] 2 mg PO DAILY #30 tablet 11/30/17 id home
[2017-12-01] MEDS ORDERED: PT OWN MED DRAWER 7, Y5N ONE ×2 (10:42→14:22)
[2017-12-01] MEDS: AMOX TR/POT CLAV 875MG/125MG TABLETS (FP) PO SCH ×2 (10:49→17:19)
[2017-12-01] MEDS: ARIPiprazole 2 MG TABLET PO SCH (10:50)
[2017-12-01] MEDS: metoPROLOL SUCCINATE 25 MG TAB.SR.24H (FP) PO SCH (10:50)
[2017-12-01 13:51] VITALS: BP 119/65; PULSE 83; TEMP 98.3
--- NOTE | 2017-12-01 14:25 | PN ---
Progress Note, Physician History of Present Illness: stable still with headaches - Current Medication List Current Medications: Active Medications Amoxicillin/Clavulanate Potassium (Augmentin - 875mg Tablet) 1 tab PO BID@0800, 1730 [facility] Last Admin: 12/01/17 10:49 Dose: 1 tab Aripiprazole (Abilify) 2 mg PO DAILY [facility] Last Admin: 12/01/17 10:50 Dose: 2 mg Ketorolac Tromethamine (Toradol Injection -) 30 mg IVPUSH BID PRN PRN Reason: PAIN LEVEL 4 - 6 Stop: 12/04/17 09:08 Methimazole (Tapazole -) 10 mg PO TID [facility] Last Admin: 12/01/17 05:36 Dose: 10 mg Metoprolol Succinate (Toprol Xl -) 25 mg PO DAILY [facility] Last Admin: 12/01/17 10:50 Dose: 25 mg Valproate Sodium (Depacon Injection -) 500 mg IVPB Q8H-IV [facility] Last Admin: 12/01/17 11:15 Dose: 500 mg - Objective Vital Signs: Vital Signs Temperature 98.3 F 12/01/17 13:49 Pulse Rate 83 12/01/17 13:49 Respiratory Rate 17 12/01/17 13:49 Blood Pressure 119/65 12/01/17 13:49 O2 Sat by Pulse Oximetry (%) 96 12/01/17 05:00 Constitutional: Yes: No Distress, Calm Neck: Yes: Other (left thyroid swelling) Cardiovascular: Yes: Regular Rate and Rhythm Respiratory: Yes: Regular, CTA Bilaterally Gastrointestinal: Yes: Normal Bowel Sounds Musculoskeletal: Yes: WNL Extremities: Yes: WNL Neurological: Yes: Alert, Oriented Psychiatric: Yes: Alert, Oriented Labs: CBC, BMP 11/28/17 14:45 11/28/17 14:45 - ....Imaging MRI: Report Reviewed, Image Reviewed Assessment/Plan Problem List - Problems (1) Hyperthyroidism Assessment/Plan: on meds get endocrine involve Code(s): E05.90 - THYROTOXICOSIS, UNSP WITHOUT THYROTOXIC CRISIS OR STORM (2) HTN (hypertension) Assessment/Plan: on meds stable Code(s): I10 - ESSENTIAL (PRIMARY) HYPERTENSION (3) Headache Assessment/Plan: prn tylenol Code(s): R51 - HEADACHE (4) Thyroid mass Assessment/Plan: need work up Code(s): E07.9 - DISORDER OF THYROID, UNSPECIFIED plan continue current mgmt awating endo rest continue current mgmt monitor headaches
--- NOTE | 2017-12-01 14:36 | PN ---
Progress Note (short form) - Note Progress Note: pt seen and examined General Appearance: Yes: Appropriately Dressed. No: Apparent Distress Neck: positive: Supple, Other (mod swelling over L thyroid). Respiratory/Chest: negative: Respiratory Distress Cardiac--S1, S2 regular, no m/r/g Chest-- CTA Last Vital Signs Temp Pulse Resp BP Pulse Ox 98.3 F 83 17 119/65 96 12/01/17 13:49 12/01/17 13:49 12/01/17 13:49 12/01/17 13:49 12/01/17 05:00 CBC, BMP 11/28/17 14:45 11/28/17 14:45 Current Medications Generic Name Dose Route Start Last Admin Trade Name Freq PRN Reason Stop Dose Admin Amoxicillin/Clavulanate Potassium 1 tab 11/29/17 17:30 12/01/17 10:49 Augmentin - 875mg Tablet PO 1 tab BID@0800,1730 [facility] Administration Aripiprazole 2 mg 11/29/17 19:00 12/01/17 10:50 Abilify PO 2 mg DAILY [facility] Administration Ketorolac Tromethamine 30 mg 12/01/17 09:09 Toradol Injection - IVPUSH 12/04/17 09:08 BID PRN PAIN LEVEL 4 - 6 Methimazole 10 mg 11/28/17 22:00 12/01/17 05:36 Tapazole - PO 10 mg TID [facility] Administration Metoprolol Succinate 25 mg 11/29/17 10:00 12/01/17 10:50 Toprol Xl - PO 25 mg DAILY [facility] Administration Valproate Sodium 500 mg 11/30/17 23:15 12/01/17 11:15 Depacon Injection - IVPB 500 mg Q8H-IV [facility] Administration 52-year-old female, history of HTN, hyperthyroid on methimazole, here with headache. Neuro c/s noted Thyromegaly--left lobe TSH less than 0.01. Endo consult pending if d/c, would need close f/u with endo, pt aware
== END 2017-12-01 17:52 | disposition home or self-care (01) ==
LOC: JER 13:25 → JERBED 17:57 → INTOOBSV 17:57 → J5S 21:03
PROVIDERS: ADMIT Internal Medicine; ATTEND Internal Medicine
PROC: 3E0333Z Introduction of Anti-inflammatory into Peripheral Vein, Percutaneous Approach (ICD-10-PCS; principal; 2017-11-28)
PROC: 3E033GC Introduction of Other Therapeutic Substance into Peripheral Vein, Percutaneous Approach (ICD-10-PCS; 2017-11-28)
DX: R22.1 Localized swelling, mass and lump, neck (principal); R51 Headache; E07.89 Other specified disorders of thyroid; I10 Essential (primary) hypertension; E05.90 Thyrotoxicosis, unspecified without thyrotoxic crisis or storm; Z91.14 Patient's other noncompliance with medication regimen; F31.31 Bipolar disorder, current episode depressed, mild
CPT/HCPCS: 36415; 70450-TC; 70490-TC; 70551-TC; 71046-TC-FY; 72141-TC; 80053; 84436; 84443; 84479; 84703; 85025; 85651; 86038; 96374; 96375; 99284-25; G0378

== ENCOUNTER 2018-02-03 15:33 | Emergency (ER) | payer OTHER ==
--- NOTE | 2018-02-03 15:40 | PDOC ---
Rapid Medical Evaluation Chief Complaint: Allergic Reaction Time Seen by Provider: 02/03/18 15:36 Medical Evaluation: Allergies Allergy/AdvReac Type Severity Reaction Status Date / Time No Known Allergies Allergy Verified 11/28/17 13:34 02/03/18 15:37 I have performed a brief in-person evaluation of this patient. The patient presents with a chief complaint of:lip pain/rash that started 1 month after kissing the scalp/head of a friend. PMD gave her zyrtec with no relief Pertinent physical exam findings:unremarkable I have ordered the following:nothing The patient will proceed to the ED for further evaluation. Discharge Disposition - Diagnosis Rash and nonspecific skin eruption - Referrals - Patient Instructions - Post Discharge Activity
[2018-02-03 15:48] VITALS: BP 143/91; PULSE 82; TEMP 98; BMI 28.6
--- NOTE | 2018-02-03 16:50 | PDOC ---
History of Present Illness - General Chief Complaint: Allergic Reaction Stated Complaint: ALLERGIC REACTION Time Seen by Provider: 02/03/18 15:36 History Source: Patient Exam Limitations: Clinical Condition - History of Present Illness Initial Comments: 02/03/18 16:45 Patient present with complains of 1 month h/o swelling to upper and lower lips with blisters after kissing the head of a friend after friend doing yard work clearing out bushes. Patient report she started getting itching sensation few minutes after kissing friend on the head and mouth started swelling the next day which has been persistent. pt report she saw PCP for symptoms and was instructed to take zurtec which has not helped with symptoms. report she had sensation of throat closing up but has resolved. Denies SOB, palpitations, dizziness Timing/Duration: other (1 months) Severity: moderate Modifying Factors: improves with: medication Associated Symptoms: reports: rash Aspirin Received prior to arrival: Yes: no aspirin today Beta Tiana Contraindications(Core Measure): Yes: Not Prescribed Beta Tiana Given by EMS(Core Measure): No Beta Tiana Taken at Home(Core Measure): No Beta Tiana Not Indicated at this Time(Core Measure): No Past History - Past Medical History Allergies/Adverse Reactions: Allergies Allergy/AdvReac Type Severity Reaction Status Date / Time dog dander Allergy Verified 02/03/18 15:40 Penicillins Allergy Verified 02/03/18 15:40 wool Allergy Verified 02/03/18 15:40 Home Medications: Ambulatory Orders Famotidine [Pepcid] 20 mg PO BID 5 Days #10 tablet 02/03/18 Levothyroxine Sodium [Synthroid] 88 mcg PO DAILY 02/03/18 Prednisone [Deltasone] 20 mg PO BID 5 Days #10 tablet 02/03/18 COPD: No HTN: Yes Thyroid Disease: Yes (Hyperthyroid) - Surgical History Appendectomy: Yes - Suicide/Smoking/Psychosocial Hx Smoking History: Never smoked Have you smoked in the past 12 months: No Information on smoking cessation initiated: No Hx Alcohol Use: No Drug/Substance Use Hx: No Substance Use Type: None Hx Substance Use Treatment: No Review of Systems - Review of Systems Is the patient limited Yi proficient: No Constitutional: No: Chills, Fever, Malaise HEENTM: Yes: Mouth Pain, Mouth Swelling. No: Symptoms Reported, Eye Pain, Blurred Vision, Tearing, Recent change in vision, Double Vision, Cataracts, Ear Pain, Ocular Prothesis, Ear Discharge, Nose Pain, Nose Congestion, Tinnitus, Nose Bleeding, Hearing Loss, Throat Pain, Throat Swelling, Dental Problems, Difficulty Swallowing, Other Respiratory: No: Cough, Shortness of Breath, SOB with Exertion, SOB at Rest, Wheezing Cardiac (ROS): No: Chest Pain, Lightheadedness, Palpitations ABD/GI: No: Symptoms Reported Musculoskeletal: No: Joint Pain, Joint Stiffness Integumentary: Yes: Rash (swelling with blister to upper and lower lips). No: Bruising *Physical Exam - Vital Signs Last Vital Signs Temp Pulse Resp BP Pulse Ox 98.0 F 82 16 143/91 100 02/03/18 15:37 02/03/18 15:37 02/03/18 15:37 02/03/18 15:37 02/03/18 15:37 - Physical Exam General Appearance: Yes: Nourished, Appropriately Dressed. No: Apparent Distress HEENT: positive: VANDANA, Normal ENT Inspection, Normal Voice, TMs Normal, Pharynx Normal, Other (mild swelling to upper and lower lips . no open wound of lips) Respiratory/Chest: positive: Lungs Clear, Normal Breath Sounds. negative: Respiratory Distress Cardiovascular: positive: Regular Rhythm, Regular Rate Gastrointestinal/Abdominal: positive: Normal Bowel Sounds Musculoskeletal: positive: Normal Inspection Extremity: positive: Normal Inspection Integumentary: positive: Swelling (mild swelling to upper and lower lips with one erupted blister) Neurologic: positive: Fully Oriented, Alert, Normal Mood/Affect Medical Decision Making - Medical Decision Making 02/03/18 16:53 Patient with symptoms of mouth swelling and blister due to contact with plant symptoms of angioedema due to allergic contact dermatitis. no acute distress on exam rx prednisone and anti-histamine pepcid for symptoms with follow-up with dermatology *DC/Admit/Observation/Transfer Diagnosis at time of Disposition: Rash and nonspecific skin eruption [id number] Qualifiers: Encounter type: initial encounter Qualified Code(s): T78.3XXA - Angioneurotic edema, initial encounter - Discharge Dispostion Disposition: HOME Condition at time of disposition: Stable Decision to Admit order: No - Prescriptions Prescriptions: Famotidine [Pepcid] 20 mg PO BID 5 Days #10 tablet Prednisone [Deltasone] 20 mg PO BID 5 Days #10 tablet - Referrals Referrals: Renaldo Patricia MD [Primary Care Provider] - - Patient Instructions Printed Discharge Instructions: Angioedema, DI for Angioedema Additional Instructions: Take medication as prescribed. follow-up with dermatology if no improvement in symptoms in 4 days - Post Discharge Activity
== END 2018-02-03 17:04 | disposition home or self-care (01) ==
LOC: JER 15:33 → JERFT 15:33
DX: T78.3XXA Angioneurotic edema, initial encounter (principal)
CPT/HCPCS: 99281-25

== ENCOUNTER 2018-05-06 15:02 | Emergency (ER) | payer SELFPAY ==
[2018-05-06 15:09] VITALS: BMI 26.6
--- NOTE | 2018-05-06 15:15 | PDOC ---
History of Present Illness - General Chief Complaint: Shortness of Breath Stated Complaint: NUMBNESS Time Seen by Provider: 05/06/18 15:15 History Source: Patient Exam Limitations: No Limitations - History of Present Illness Initial Comments: 05/06/18 15:57 53-year-old female with past medical history of neuropathic pain, chronic back pain, hypertension presents Emergency Department for bilateral feet and hand numbness x2 days. She admits to shortness of breath, upper and lower back pain, bilateral lower extremity swelling. She states that this has been going on for four months, she has been seen by her PCP last week for similar, who prescribed her Zostrix cream, which she did not use, because she was in pain. Her neurologist, Dr. Nancy Rebolledo, prescribed her a methylprednisolone 6 day dose pack for her pain, which she took x2 weeks ago and helped. She states that it is painful for her to walk on her feet. She is under a lot of stress at home currently. She states that she had an episode of burning, left sided chest pain yesterday. Denies current chest pain. She states that there has been no changes to her methimazole dose for her hyperthyroidism. She denies recent plane/train/ bus/car ride >5 hours, hx malignancy, hx DVT/PE, hormone use, extremity casting , surgery in the last 4 weeks. Allergies - PCN Past History - Past Medical History Allergies/Adverse Reactions: Allergies Allergy/AdvReac Type Severity Reaction Status Date / Time dog dander Allergy Verified 05/06/18 15:03 Penicillins Allergy Verified 05/06/18 15:03 wool Allergy Verified 05/06/18 15:03 Home Medications: Ambulatory Orders Levothyroxine Sodium [Synthroid] 88 mcg PO DAILY 02/03/18 Ibuprofen [Motrin -] 600 mg PO TID #15 tablet 05/06/18 hydrOXYzine PAMOATE [Vistaril -] 25 mg PO DAILY #7 capsule 05/06/18 COPD: No HTN: Yes Thyroid Disease: Yes (Hyperthyroid) - Surgical History Appendectomy: Yes - Suicide/Smoking/Psychosocial Hx Smoking History: Never smoked Have you smoked in the past 12 months: No Hx Alcohol Use: No Drug/Substance Use Hx: No Substance Use Type: None Hx Substance Use Treatment: No Review of Systems - Review of Systems Able to Perform ROS?: Yes Comments:: 05/06/18 15:59 General: denies fever, chills, night sweats, generalized weakness. HEENT: denies sore throat, rhinorrhea, ear pain. Heart: admits to chest pain yesterday, lower extremity swelling. denies current chest pain, syncope, diaphoresis. Respiratory: admits to shortness of breath. denies cough, sputum production, hemoptysis. Abdomen: denies abdominal pain, nausea, vomiting, diarrhea, constipation, blood in stool. : denies dysuria, increased urinary frequency, hematuria, urinary incontinence , flank pain. Back: admits to back pain. Musculoskeletal: denies joint pain, muscle pain, joint swelling. Neurological: admits to numbness, tingling. denies headache, dizziness, weakness. Skin: denies rash, laceration, abrasion. *Physical Exam - Vital Signs Last Vital Signs Temp Pulse Resp BP Pulse Ox 94.0 F L 93 H 18 115/81 99 05/06/18 15:03 05/06/18 15:03 05/06/18 15:03 05/06/18 15:03 05/06/18 15:03 - Physical Exam Comments: 05/06/18 16:01 Constitutional: Well-nourished, Well-developed, appearing stated age. HEENT: head is normocephalic, atraumatic. EOMI. PERRLA. Neck: supple. Full ROM. Heart: regular rhythm. no murmurs, rubs or gallops. Lungs: clear to auscultation bilaterally. no crackles, rhonchi or wheezing. no stridor. Back: no midline c-spine, t-spine or l-spine tenderness to palpation. no low back paraspinal tenderness to palpation bilaterally. Abdomen: soft. suprapubic tenderness to palpation. normal bowel sounds. no rebound, guarding, masses. Extremities: Peripheral pulses intact and equal. No lower extremity edema. no tenderness to palpation of bilateral calf. Neurological: Alert. Oriented x3. CN2-12 intact. 5/5 strength all extremities. Full sensation all extremities and bilateral face. Romberg negative. Finger to nose normal. Antalgic gait. Psych: awake, alert, oriented x3. Follows commands. Answers questions appropriately. ED Treatment Course - LABORATORY CBC & Chemistry Diagram: 05/06/18 16:00 05/06/18 16:00 Medical Decision Making - Medical Decision Making 05/06/18 16:02 53-year-old female with past medical history of neuropathic pain, hypertension presents Emergency Department for bilateral feet and hand numbness x2 days. Hx of prior. She admits to an episode of left sided chest burning yesterday. Initial Vital Signs Temp Pulse Resp BP Pulse Ox 94.0 F L 93 H 18 115/81 99 05/06/18 15:03 05/06/18 15:03 05/06/18 15:03 05/06/18 15:03 05/06/18 15:03 Pt is anxious during interview. Non-rebreather without oxygen applied to aid in retaining CO2. Concern for electrolyte abnormality/hyperglycemia. - Pending CMP Concern for thyroid abnormalities - Pending TSH, free T4 Concern for DVT - Pending bilateral duplex US Low concern for CT - Pending EKG and cardiac enzymes Low concern for PE. HR <100. no hypoxia on room air. - WELLS = 0 - Unable to PERC out based on age Concern for UTI. - Pending CBC, UA/UC Concern for thoracic/lumbar spine fracture - Pending T-spine and L-spine XR 05/06/18 17:26 CBC WBC 7.1 K/mm3 (4.0-10.0) 05/06/18 16:00 RBC 4.97 M/mm3 (3.60-5.2) 05/06/18 16:00 Hgb 13.6 GM/dL (10.7-15.3) 05/06/18 16:00 Hct 41.2 % (32.4-45.2) 05/06/18 16:00 MCV 82.9 fl (80-96) 05/06/18 16:00 MCH 27.3 pg (25.7-33.7) 05/06/18 16:00 MCHC 32.9 g/dl (32.0-36.0) 05/06/18 16:00 RDW 13.7 % (11.6-15.6) 05/06/18 16:00 Plt Count 269 K/MM3 (134-434) 05/06/18 16:00 MPV 8.2 fl (7.5-11.1) 05/06/18 16:00 Absolute Neuts (auto) 4.4 K/mm3 (1.5-8.0) 05/06/18 16:00 Neutrophils % 62.6 % (42.8-82.8) 05/06/18 16:00 Lymphocytes % 28.2 % (8-40) 05/06/18 16:00 Monocytes % 7.4 % (3.8-10.2) 05/06/18 16:00 Eosinophils % 1.1 % (0-4.5) 05/06/18 16:00 Basophils % 0.7 % (0-2.0) 05/06/18 16:00 Nucleated RBC % 0 % (0-0) 05/06/18 16:00 No leukocytosis. No anemia. CMP Sodium 137 mmol/L (136-145) 05/06/18 16:00 Potassium 4.8 mmol/L (3.5-5.1) 05/06/18 16:00 Chloride 108 mmol/L (98-107) H 05/06/18 16:00 Carbon Dioxide 26 mmol/L (21-32) 05/06/18 16:00 Anion Gap 2 MMOL/L (8-16) L 05/06/18 16:00 BUN 11 mg/dL (7-18) 05/06/18 16:00 Creatinine 0.6 mg/dL (0.55-1.3) 05/06/18 16:00 Creat Clearance w eGFR > 60 (>60) 05/06/18 16:00 Random Glucose 87 mg/dL (74-106) 05/06/18 16:00 Calcium 9.4 mg/dL (8.5-10.1) 05/06/18 16:00 Total Bilirubin 0.3 mg/dL (0.2-1) 05/06/18 16:00 AST 17 U/L (15-37) 05/06/18 16:00 ALT 25 U/L (13-61) 05/06/18 16:00 Alkaline Phosphatase 88 U/L (45-117) 05/06/18 16:00 Creatine Kinase 84 IU/L (26-192) 05/06/18 16:00 Troponin I < 0.02 ng/ml (0.00-0.05) 05/06/18 16:00 Total Protein 7.0 g/dl (6.4-8.2) 05/06/18 16:00 Albumin 3.7 g/dl (3.4-5.0) 05/06/18 16:00 TSH 2.24 uIU/ml (0.358-3.74) 05/06/18 16:00 Free T4 0.90 ng/dl (0.76-1.46) 05/06/18 16:00 No electrolyte abnormalities. No acute kidney injury. No hyperglycemia. No transaminitis. Troponin normal. TSH and free T4 normal. Urine Test Results Urine Color Straw 05/06/18 16:20 Urine Appearance Clear 05/06/18 16:20 Urine pH 6.0 (5.0-8.0) 05/06/18 16:20 Ur Specific [place] 1.005 (1.010-1.035) L 05/06/18 16:20 Urine Protein Negative (NEGATIVE) 05/06/18 16:20 Urine Glucose (UA) Negative (NEGATIVE) 05/06/18 16:20 Urine Ketones Trace (NEGATIVE) H 05/06/18 16:20 Urine Blood Negative (NEGATIVE) 05/06/18 16:20 Urine Nitrite Negative (NEGATIVE) 05/06/18 16:20 Urine Bilirubin Negative (<2.0 mg/dL) 05/06/18 16:20 Ur Leukocyte Esterase Negative (NEGATIVE) 05/06/18 16:20 No evidence of urinary tract infection. 05/06/18 17:34 Pt reassessed, states she is starting to feel better. Will reassess. 05/06/18 18:56 Bilateral doppler US report - negative for DVT. CXR - negative for infiltration, sharp costophrenic angles, no cardiomegaly. Lumbar spine XR - decreased disc height, no fracture. Thoracic spine XR - degenerative changes.no fracture. I spoke with the patient about her results, she stated she understood. I spoke with the patient about the importance of following up with a neurologist , neurosurgeon and psychiatrist, she stated she understood. Pt was given Hydroxyzine today in ED, she stated that she felt it helped her, and she requested a prescription. Prescription for 1 pill daily for 7 days was prescribed along with Motrin for her pain. I informed the pt that she would need to follow up for prescription medication for a longer amount of time, she stated she understood. I discussed return precautions with the patient, she stated she understood. *DC/Admit/Observation/Transfer Diagnosis at time of Disposition: Numbness in feet - Discharge Dispostion Disposition: HOME Condition at time of disposition: Stable Decision to Admit order: No - Prescriptions Prescriptions: hydrOXYzine PAMOATE [Vistaril -] 25 mg PO DAILY #7 capsule Ibuprofen [Motrin -] 600 mg PO TID #15 tablet - Referrals Referrals: Gerardo Orozco MD, [facility] [Staff Physician] - Mainor Yu DO [Staff Physician] - Jhonny Montes MD [Staff Physician] - - Patient Instructions Additional Instructions: DOCTOR'S INSTRUCTIONS: Your blood work was normal. Your urine analysis was normal. Your chest X-ray was normal. Your spine X-rays showed degenerative changes, but no fractures. Your ultrasound of your legs showed no blood clots. Follow up with a neurologist within 5 days. I have given you a referral for a new neurologist, Dr. Yu, call his office tuesday and make an appointment for this coming week. Tell the office you were seen in the Emergency Department. Your care is not complete until you follow up. Follow up with a neurosurgeon within 5 days. I have given you a referral for Dr. Orozco, call his office tuesday and make an appointment for this coming week. Tell the office you were seen in the Emergency Department. Your care is not complete until you follow up. Follow up with a psychiatrist within 5 days. I have given you a referral for Dr. Montes, call his office tuesday and make an appointment for this coming week. Tell the office you were seen in the Emergency Department. Your care is not complete until you follow up. Follow up with your primary care doctor, Dr. Patricia, within 3 days. Call his office tuesday and make an appointment for this coming week. Tell the office you were seen in the Emergency Department. Your care is not complete until you follow up. I have written a prescription for Motrin and sent it to your pharmacy. Take as advised on the label. I have written a prescription for Hydroxyzine, to help with anxiety. Take 1 pill a day. I have written for one week. See your primary care doctor or Dr. Montes for a refill. Return to the Emergency Department for chest pain, shortness of breath, fever, lightheadedness, swelling of your calf, or any other new, worsening or concerning symptoms. - Post Discharge Activity
--- NOTE | 2018-05-06 15:28 | PDOC ---
Attending Attestation - [facility] HPI: 05/06/18 17:05 The patient is a 53-year-old female with past medical history significant for HTN, hypothyroidism, chronic back pain and neuropathic pain presents to the emergency department with numbness to hands and feet for the past 2 days. The patient presents with intermittent numbness to the toes, denies loss of sensation or weakness. The patient reports she had an episode of chest pain, burning in quality yesterday. The patient reports an episode of nonbilious- bloody emesis yesterday with generalized abdominal pain. The patient states she s been having redness to the ends of the fingers for several days denies the loss of sensation. The patient states shes been having pain to the L. leg, with tingling to the calf and swelling to the ankle. Denies urinary complains, changes in bowel habits, fever, chills chest pain currently, or dizziness. Denies changes in medication doses, or recent use of abx. Allergies: Penicillins Social history: No past or present use of tobacco, alcohol or recreational drug use. PCP: Dr. Yancey - Physicial Exam PE: 05/06/18 17:05 GENERAL: Patient is extremely anxious. Awake, alert, and fully oriented, in no acute distress HEAD: No signs of trauma EYES: PERRLA, EOMI, sclera anicteric, conjunctiva clear ENT: Auricles normal inspection, hearing grossly normal, nares patent, oropharynx clear without exudates. Moist mucosa NECK: Normal ROM, supple, no lymphadenopathy, JVD, or masses LUNGS: Breath sounds equal, clear to auscultation bilaterally. No wheezes, and no crackles HEART: (+) Mild tachycardia. No anterior chest wall tenderness. normal S1 and S2 , no murmurs, rubs or gallops ABDOMEN: (+) Mild suprapubic tenderness. Soft, normoactive bowel sounds. No guarding, no rebound. No masses EXTREMITIES: No swelling in the legs. Toes: cold, with brisk cap refill. Pedial pulse intact. Normal range of motion, no edema. No clubbing or cyanosis. No cords, erythema, or tenderness NEUROLOGICAL: Neuro intact, sensation intact. Cranial nerves II through XII grossly intact. Normal speech. SKIN: Warm, Dry, normal turgor, no rashes or lesions noted. - Medical Decision Making 05/06/18 17:15 Documentation prepared by Antonette Lai, acting as district medical examiner for Gracia Sebastian DO. 05/06/18 18:45 EXAM: US VENOUS DUPLEX LOWER BILATERAL HISTORY:Rule out DVT TECHNIQUE: Real time imaging of the bilateral lower extremities was performed including 2D B-mode, spectral and color Doppler technique. Augmentation maneuvers were performed. COMPARISON: None available. FINDINGS: No evidence of deep venous thrombosis within the right or left lower extremities THIS DOCUMENT HAS BEEN ELECTRONICALLY SIGNED Esequiel Garcia MD 05/06/2018 18:38 EST <Antonette Lai - Last Filed: 05/06/18 18:45> - Resident Resident Name: Ebonie Sanchez - ED Attending Attestation I have performed the following: I have examined & evaluated the patient, The case was reviewed & discussed with the resident, I agree w/resident's findings & plan, Exceptions are as noted - Medical Decision Making 05/06/18 15:27 I, Dr. rGacia Sebastian, , attest that this document has been prepared under my direction and personally reviewed by me in its entirety. I further attest, that it accurately reflects all work, treatment, procedures and medical decision -making performed by me. 05/06/18 16:37 a/p: 53yo female with numbness to b/l feet x 4 months -initially felt hot, now feel cold -saw a neurologist 2 weeks ago and saw her PMD 1 week ago who recommended topical cream -also with hyperthyroid - on methimazole -recently on prednisone dose pack -states legs hurt as well -hx of chronic lbp - hx of epidural injections 5 years ago -had an episode of cp yesterday -pt is very anxious in the ED -pt also suffers from depression -will send labs, xrays, ultrasound to eval for DVT -will obtain ekg, cxr -will monitor and reassess 05/06/18 18:38 degenerative 05/06/18 18:38 cxr clear degenerative changes to the thoracic spine no fx of t or l spine <Gracia Sebastian - Last Filed: 05/06/18 19:05> Heart Score/ECG Review - ECG Intrepretation Comment:: 05/06/18 17:34 sinus at 64, nl axis, nl interval, no acute st/t wave findings <Gracia Sebastian - Last Filed: 05/06/18 19:05>
[2018-05-06] MEDS ORDERED: hydrOXYzine PAMOATE 25 MG CAPSULE (FP) PO ONE (15:56)
[2018-05-06] MEDS ORDERED: SODIUM CHLORIDE 1,000 ML IV STA (16:10)
[2018-05-06 16:37] LABS: BASO % 0.7 % (0-2.0); EOS % 1.1 % (0-4.5); HEMATOCRIT 41.2 % (32.4-45.2); HEMOGLOBIN 13.6 GM/dL (10.7-15.3); LYMPH % 28.2 % (8-40); MCH 27.3 pg (25.7-33.7); MCHC 32.9 g/dl (32.0-36.0); MEAN CELL VOLUME 82.9 fl (80-96); MEAN PLT VOLUME 8.2 fl (7.5-11.1); MONO % 7.4 % (3.8-10.2); NEUT % 62.6 % (42.8-82.8); PLATELET COUNT 269 K/MM3 (134-434); RBC 4.97 M/mm3 (3.60-5.2); RDW 13.7 % (11.6-15.6); WHITE BLOOD COUNT 7.1 K/mm3 (4.0-10.0)
[2018-05-06 16:43] LABS: URINE APPEARANCE CLEAR; URINE BILIRUBIN NEGATIVE (<2.0 mg/dL); URINE COLOR STRAW; URINE GLUCOSE (UA) NEGATIVE (NEGATIVE); URINE KETONE TRACE (NEGATIVE); URINE LEUK ESTERASE NEGATIVE (NEGATIVE); URINE NITRITE NEGATIVE (NEGATIVE); URINE PROTEIN NEGATIVE (NEGATIVE); URINE UROBILINOGEN NEGATIVE mg/dL (0.2-1.0)
[2018-05-06 17:25] LABS: ALBUMIN 3.7 g/dl (3.4-5.0); ALK PHOS 88 U/L (45-117); BILIRUBIN,TOTAL 0.3 mg/dL (0.2-1); BLOOD UREA NITROGEN 11 mg/dL (7-18); CALCIUM 9.4 mg/dL (8.5-10.1); CHLORIDE 108 mmol/L (98-107); CO2 26 mmol/L (21-32); CREATININE 0.6 mg/dL (0.55-1.3); GLUCOSE,RANDOM 87 mg/dL (74-106); SGPT/ALT 25 U/L (13-61); SODIUM 137 mmol/L (136-145)
[2018-05-06 17:26] LABS: ANION GAP 2 MMOL/L (8-16); POTASSIUM 4.8 mmol/L (3.5-5.1); SGOT/AST 17 U/L (15-37)
[2018-05-06] MEDS ORDERED: ACETAMINOPHEN 325 MG TABLET (FP) PO ONE (18:36)
[2018-05-06] MEDS ORDERED: ACETAMINOPHEN 325 MG TABLET (FP) ONE (18:38)
[2018-05-06 19:55] VITALS: BP 111/75; PULSE 77; TEMP 98.6
--- NOTE | 2018-05-08 11:08 | EKG ---
Test Reason : Blood Pressure : / mmHG Vent. Rate : 064 BPM Atrial Rate : 064 BPM P-R Int : 150 ms QRS Dur : 084 ms QT Int : 420 ms P-R-T Axes : 061 078 030 degrees QTc Int : 433 ms NORMAL SINUS RHYTHM WITH SINUS ARRHYTHMIA NORMAL ECG NO PREVIOUS ECGS AVAILABLE Confirmed by MARCELINA SMALLS MD ([id number]) on 05/08/2018 11:07:48 AM Referred By: Confirmed By:MARCELINA SMALLS MD
== END 2018-05-06 19:50 | disposition home or self-care (01) ==
LOC: JER 15:02
PROC: 3E0337Z Introduction of Electrolytic and Water Balance Substance into Peripheral Vein, Percutaneous Approach (ICD-10-PCS; principal; 2018-05-06)
DX: M79.2 Neuralgia and neuritis, unspecified (principal); R20.0 Anesthesia of skin; R20.2 Paresthesia of skin; I10 Essential (primary) hypertension; M54.5 Low back pain; G89.29 Other chronic pain; E03.9 Hypothyroidism, unspecified; Z88.0 Allergy status to penicillin
CPT/HCPCS: 36415; 71046-TC-FY; 72070-TC-FY; 72100-TC-FY; 80053; 81003; 82550; 84439; 84443; 84484; 85025; 87086; 93005; 93010; 93970-TC; 99283-25; J7030

== ENCOUNTER 2018-11-11 19:09 | Emergency (ER) | payer OTHER ==
[2018-11-11 19:18] VITALS: BP 99/54; PULSE 100; TEMP 98.4; BMI 26.8
--- NOTE | 2018-11-11 19:45 | PDOC ---
History of Present Illness - General Chief Complaint: Pain, Acute Stated Complaint: CHEST PAIN/PAIN IN BOTH LEGS Time Seen by Provider: 11/11/18 19:45 - History of Present Illness Initial Comments: 11/11/18 19:48 Ms. Dacosta is a 53 yo female w/ pmh of HTN, HLD, hyperthyroidism (on methimazole), chronic back pain, chronic neuropathic pain who presents for evaluation of 2 weeks of worsening of her neuropathic pain. Patient reports it is 10/10, constant, burning, throbbing, worse at night, and associated with midline chest pain, back pain, and R arm pain and numbness along her medial arm. Chest pain is worse when she drinks coffee. Patient also reports shortness of breath w/ exertion. The patient denies chest pain, shortness of breath, headache and dizziness. Denies fever, chills, nausea, vomit, diarrhea and constipation. Denies dysuria, frequency, urgency and hematuria. PCP: [place] Past History - Past Medical History Allergies/Adverse Reactions: Allergies Allergy/AdvReac Type Severity Reaction Status Date / Time dog dander Allergy Verified 05/06/18 15:03 Penicillins Allergy Verified 05/06/18 15:03 wool Allergy Verified 05/06/18 15:03 Home Medications: Ambulatory Orders Levothyroxine Sodium [Synthroid] 88 mcg PO DAILY 02/03/18 Ibuprofen [Motrin -] 600 mg PO TID #15 tablet 05/06/18 hydrOXYzine PAMOATE [Vistaril -] 25 mg PO DAILY #7 capsule 05/06/18 Nitrofurantoin Monohyd/M-Cryst [Macrobid -] 100 mg PO BID #10 capsule 11/11/18 COPD: No HTN: Yes Thyroid Disease: Yes (Hyperthyroid) - Surgical History Appendectomy: Yes - Suicide/Smoking/Psychosocial Hx Smoking History: Unknown if ever smoked Have you smoked in the past 12 months: No Information on smoking cessation initiated: No Hx Alcohol Use: No Drug/Substance Use Hx: No Substance Use Type: None Hx Substance Use Treatment: No Review of Systems - Review of Systems Comments:: 11/11/18 19:58 GENERAL/CONSTITUTIONAL: No fever or chills. No weakness. HEAD, EYES, EARS, NOSE AND THROAT: No change in vision. No ear pain or discharge. No sore throat. CARDIOVASCULAR: No chest pain or shortness of breath RESPIRATORY: No cough, wheezing, or hemoptysis. GASTROINTESTINAL: No nausea, vomiting, diarrhea or constipation. GENITOURINARY: No dysuria, frequency, or change in urination. MUSCULOSKELETAL: No joint or muscle swelling or pain. No neck or back pain. SKIN: No rash NEUROLOGIC: +Exacerbation of neuropathic pain as described. No headache, vertigo , loss of consciousness, or change in strength/sensation. ENDOCRINE: No increased thirst. No abnormal weight change HEMATOLOGIC/LYMPHATIC: No anemia, easy bleeding, or history of blood clots. ALLERGIC/IMMUNOLOGIC: No hives or skin allergy. *Physical Exam - Vital Signs Last Vital Signs Temp Pulse Resp BP Pulse Ox 98.4 F 100 H 18 99/54 L 98 11/11/18 19:14 11/11/18 19:14 11/11/18 19:14 11/11/18 19:14 11/11/18 19:14 - Physical Exam Comments: 11/11/18 19:58 GENERAL: Awake, alert, and fully oriented, in no acute distress HEAD: No signs of trauma, normocephalic, atraumatic EYES: PERRLA, EOMI, sclera anicteric, conjunctiva clear ENT: Auricles normal inspection, hearing grossly normal, nares patent, oropharynx clear without exudates. Moist mucosa NECK: Normal ROM, supple, no lymphadenopathy, JVD, or masses LUNGS: No distress, speaks full sentences, clear to auscultation bilaterally HEART: Regular rate and rhythm, normal S1 and S2, no murmurs, rubs or gallops, peripheral pulses normal and equal bilaterally. ABDOMEN: Soft, nontender, normoactive bowel sounds. No guarding, no rebound. No masses EXTREMITIES: Normal inspection, Normal range of motion, no edema. No clubbing or cyanosis. NEUROLOGICAL: Cranial nerves II through XII grossly intact. Normal speech, normal gait, no focal sensorimotor deficits SKIN: Warm, Dry, normal turgor, no rashes or lesions noted. ED Treatment Course - LABORATORY CBC & Chemistry Diagram: 11/11/18 20:45 11/11/18 20:45 Medical Decision Making - Medical Decision Making 11/11/18 22:00 Ms. Dacosta is a 53 yo female w/ pmh as described who presents for evaluation of chronic pain exacerbation. Patient exam started with labs as below with EKG and CXR. Patient noted to have UTI as below. EKG negative. CXR negative. Labs otherwise grossly wnl. Suspect UTI exacerbating chronic pain. Patient will be started on ABX. Discharging to home. Laboratory Results - last 24 hr 11/11/18 11/11/18 11/11/18 20:45 20:45 20:45 WBC 8.3 RBC 4.50 Hgb 12.7 Hct 37.9 MCV 84.2 MCH 28.2 MCHC 33.5 RDW 14.2 Plt Count 262 MPV 8.2 Absolute Neuts (auto) 4.8 Neutrophils % 57.7 Lymphocytes % 31.3 Monocytes % 8.6 Eosinophils % 1.6 Basophils % 0.8 Nucleated RBC % 0 Sodium 141 Potassium 4.2 Chloride 108 H Carbon Dioxide 27 Anion Gap 7 L BUN 20 H Creatinine 0.6 Creat Clearance w eGFR 105.40 Random Glucose 90 Calcium 9.0 Total Bilirubin 0.2 AST 15 ALT 22 Alkaline Phosphatase 65 Creatine Kinase 124 Troponin I < 0.02 Total Protein 7.0 Albumin 3.8 TSH 1.33 Urine Color Urine Appearance Urine pH Ur Specific [place] Urine Protein Urine Glucose (UA) Urine Ketones Urine Blood Urine Nitrite Urine Bilirubin Urine Urobilinogen Ur Leukocyte Esterase Urine WBC (Auto) Urine RBC (Auto) Urine Casts (Auto) U Epithel Cells (Auto) Urine Bacteria (Auto) 11/11/18 20:50 WBC RBC Hgb Hct MCV MCH MCHC RDW Plt Count MPV Absolute Neuts (auto) Neutrophils % Lymphocytes % Monocytes % Eosinophils % Basophils % Nucleated RBC % Sodium Potassium Chloride Carbon Dioxide Anion Gap BUN Creatinine Creat Clearance w eGFR Random Glucose Calcium Total Bilirubin AST ALT Alkaline Phosphatase Creatine Kinase Troponin I Total Protein Albumin TSH Urine Color Yellow Urine Appearance Clear Urine pH 5.5 Ur Specific [place] 1.010 Urine Protein Negative Urine Glucose (UA) Negative Urine Ketones Negative Urine Blood Negative Urine Nitrite Negative Urine Bilirubin Negative Urine Urobilinogen 0.2 Ur Leukocyte Esterase 2+ H Urine WBC (Auto) 17 Urine RBC (Auto) 1 Urine Casts (Auto) 1 U Epithel Cells (Auto) 1.0 Urine Bacteria (Auto) 5.6 *DC/Admit/Observation/Transfer Diagnosis at time of Disposition: UTI (urinary tract infection) Qualifiers: Urinary tract infection type: site unspecified Hematuria presence: without hematuria Qualified Code(s): N39.0 - Urinary tract infection, site not specified - Discharge Dispostion Disposition: HOME Condition at time of disposition: Stable - Prescriptions Prescriptions: Nitrofurantoin Monohyd/M-Cryst [Macrobid -] 100 mg PO BID #10 capsule - Referrals - Patient Instructions Printed Discharge Instructions: DI for Urinary Tract Infection (UTI) Additional Instructions: You were evaluated today in the ER and found to have a urinary tract infection. We have sent a proscription to your pharmacy for treatment. Please take all medications as prescribed. Follow-up with primary care provider next week for further evaluation. Return to ER if any fever, chills, increase in pain, or other concerning symptoms. - Post Discharge Activity
[2018-11-11] MEDS ORDERED: ACETAMINOPHEN 500 MG TABLET (FP) PO ONE (20:16)
[2018-11-11] MEDS ORDERED: ACETAMINOPHEN 325 MG TABLET (FP) ONE (20:23)
[2018-11-11 20:55] LABS: BASO % 0.8 % (0-2.0); EOS % 1.6 % (0-4.5); HEMATOCRIT 37.9 % (32.4-45.2); HEMOGLOBIN 12.7 GM/dL (10.7-15.3); LYMPH % 31.3 % (8-40); MCH 28.2 pg (25.7-33.7); MCHC 33.5 g/dl (32.0-36.0); MEAN CELL VOLUME 84.2 fl (80-96); MEAN PLT VOLUME 8.2 fl (7.5-11.1); MONO % 8.6 % (3.8-10.2); NEUT % 57.7 % (42.8-82.8); PLATELET COUNT 262 K/MM3 (134-434); RDW 14.2 % (11.6-15.6); WHITE BLOOD COUNT 8.3 K/mm3 (4.0-10.0)
[2018-11-11 21:02] LABS: PH,URINE 5.5 (5.0-8.0); URINE APPEARANCE CLEAR; URINE BACTERIA 5.6 /hpf (NEGATIVE); URINE BILIRUBIN NEGATIVE (NEGATIVE); URINE CASTS 1 /hpf (0-8); URINE COLOR YELLOW; URINE GLUCOSE (UA) NEGATIVE (NEGATIVE); URINE KETONE NEGATIVE (NEGATIVE); URINE LEUK ESTERASE 2+ (NEGATIVE); URINE NITRITE NEGATIVE (NEGATIVE); URINE PROTEIN NEGATIVE (NEGATIVE); URINE RBC 1 /hpf (0-4); URINE UROBILINOGEN 0.2 mg/dL (0.2-1.0); URINE WBC 17 /hpf (0-5)
[2018-11-11 21:17] LABS: ALBUMIN 3.8 g/dl (3.4-5.0); ALK PHOS 65 U/L (45-117); ANION GAP 7 MMOL/L (8-16); BILIRUBIN,TOTAL 0.2 mg/dL (0.2-1); BLOOD UREA NITROGEN 20 mg/dL (7-18); CHLORIDE 108 mmol/L (98-107); CO2 27 mmol/L (21-32); CREATININE 0.6 mg/dL (0.55-1.3); GLUCOSE,RANDOM 90 mg/dL (74-106); POTASSIUM 4.2 mmol/L (3.5-5.1); SGOT/AST 15 U/L (15-37); SGPT/ALT 22 U/L (13-61); SODIUM 141 mmol/L (136-145)
[2018-11-11] MEDS ORDERED: NITROFURANTOIN MACROCRYSTAL 50 MG CAPSULE (FP) PO SCH (22:00)
--- NOTE | 2018-11-11 22:21 | PDOC ---
Attending Attestation - HPI HPI: This patient is a 53 year old female with PMHx of HTN, HLD, hyperthyroidism ( on methimazole), chronic back pain, chronic neuropathic pain who presents for worsening neuropathic pain. She reports pain diffusely in her b/l back, arms, along with numbness in her fingers. She states that the pain makes it difficult for her to lie down comfortably. The patient denies chest pain, shortness of breath, headache and dizziness. Denies fever, chills, nausea, vomit, diarrhea and constipation. Denies dysuria, frequency, urgency and hematuria. PCP: [facility] - Physicial Exam PE: GENERAL: Awake, alert, and fully oriented, in moderate distress HEAD: No signs of trauma EYES: PERRLA, EOMI, sclera anicteric, conjunctiva clear LUNGS: Breath sounds equal, clear to auscultation bilaterally. No wheezes, and no crackles HEART: Regular rate and rhythm, normal S1 and S2, no murmurs, rubs or gallops ABDOMEN: Soft, nontender, normoactive bowel sounds. No guarding, no rebound. No masses EXTREMITIES: Normal range of motion, no edema. No clubbing or cyanosis. No cords, erythema, or tenderness NEUROLOGICAL: Cranial nerves II through XII grossly intact. Normal speech, normal gait SKIN: Warm, Dry, normal turgor, no rashes or lesions noted. <Martha Rivero - Last Filed: 11/11/18 22:22> - Resident Resident Name: Vic Amezcua - Medical Decision Making 11/12/18 01:47 Pt presents to the ED complaining of generalized pain, worst in her bilateral upper buttocks that is chronic but worse over the last two weeks. This pain seems consistent with her prior history of fibromyalgia. Will treat pain, check labs to rule out infection and discharge home if negative. <Tatyana Melchor - Last Filed: 11/12/18 01:50> Attestations - Attestations 11/11/18 22:29 Documentation prepared by Martha Rivero, acting as territory sales manager medical for Tatyana Melchor MD. <Martha Rivero - Last Filed: 11/11/18 22:22>
--- NOTE | 2018-11-13 10:33 | EKG ---
Test Reason : Blood Pressure : / mmHG Vent. Rate : 071 BPM Atrial Rate : 071 BPM P-R Int : 150 ms QRS Dur : 078 ms QT Int : 386 ms P-R-T Axes : 056 061 033 degrees QTc Int : 419 ms NORMAL SINUS RHYTHM POSSIBLE LEFT ATRIAL ENLARGEMENT BORDERLINE ECG WHEN COMPARED WITH ECG OF 06-MAY-2018 17:23, NO SIGNIFICANT CHANGE WAS FOUND Confirmed by JULIO BEAVER, JOSE RAMON ([id number]) on 11/13/2018 10:32:59 AM Referred By: Confirmed By:JOSE RAMON KIM MD
== END 2018-11-11 22:10 | disposition home or self-care (01) ==
LOC: JER 19:09
DX: N39.0 Urinary tract infection, site not specified (principal); I10 Essential (primary) hypertension; E78.00 Pure hypercholesterolemia, unspecified; E05.90 Thyrotoxicosis, unspecified without thyrotoxic crisis or storm; M54.5 Low back pain; G89.29 Other chronic pain
CPT/HCPCS: 36415; 71045-TC-FY; 80053; 81003; 82550; 84443; 84484; 85025; 87086; 93005; 93010; 99282-25

== ENCOUNTER 2019-02-15 17:13 | Emergency (ER) | payer SELFPAY ==
[2019-02-15 17:18] VITALS: BMI 26.6
--- NOTE | 2019-02-15 17:18 | PDOC ---
Rapid Medical Evaluation Chief Complaint: Pain Time Seen by Provider: 02/15/19 17:14 Medical Evaluation: Allergies Allergy/AdvReac Type Severity Reaction Status Date / Time escitalopram Allergy Mild Verified 11/11/18 22:29 dog dander Allergy Verified 05/06/18 15:03 Penicillins Allergy Verified 05/06/18 15:03 wool Allergy Verified 05/06/18 15:03 02/15/19 17:15 I have performed a brief in-person evaluation of this patient. The patient presents with a chief complaint of: abd pain after lifting heavy person, back pain and some neuropathy Pertinent physical exam findings: pale, anxious, walks stooped I have ordered the following: UA/ UCg, The patient will proceed to the ED for further evaluation. 02/15/19 17:16 Discharge Disposition - Diagnosis Abdominal pain - Referrals Referrals: Renaldo Patricia MD [Primary Care Provider] - - Patient Instructions - Post Discharge Activity
[2019-02-15 18:23] VITALS: TEMP 98.9
--- NOTE | 2019-02-15 19:35 | PDOC ---
History of Present Illness - General Chief Complaint: Pain Stated Complaint: PAIN ABD Time Seen by Provider: 02/15/19 17:14 - History of Present Illness Initial Comments: 02/15/19 19:29 CHIEF COMPLAINT: multiple complaints HISTORY OF PRESENT ILLNESS: Patient hx of hyperthyroidism (on methimazole) presents to ED with multiple complaints, including pain to R lower back & hip after lifting a friend "to help her." Also reports pain with urination. Pain to RUQ as well as lower back and also to chest with palpitations. Patient reports diaphoresis all day today with numbness to L leg. Patient is extremely anxious and admits to being very anxious about "all my symptoms, I'm too young to have so much wrong with me." Patient's PCP is MD Patricia. No recent travel or sick contacts. PAST MEDICAL HISTORY: hyperthyroidism FAMILY HISTORY: Denies SOCIAL HISTORY: Denies tobacco, alcohol, illicit drug use. SURGICAL HISTORY: Denies ALLERGIES: escitalopram, pcn REVIEW OF SYSTEMS General/Constitutional: Denies fever or chills. Denies weakness, weight change. HEENT: Denies change in vision. Denies ear pain or discharge. Denies sore throat. Cardiovascular: Intermittent chest discomfort and palpitations. Respiratory: Denies cough, wheezing, or hemoptysis. Gastrointestinal: RUQ pain. Denies nausea, vomiting, diarrhea or constipation. Denies rectal bleeding. Genitourinary: Dysuria, denies urinary frequency. Musculoskeletal: Lower back pain x 5-6 days. Skin and breasts: Denies rash or easy bruising. Neurologic: Denies headache, vertigo, loss of consciousness, or loss of sensation. Psychiatric: Anxiety PHYSICAL EXAM General Appearance: Well-appearing, appropriately dressed. No apparent distress , no intoxication. HEENT: EOMI, PERRLA, normal ENT inspection, normal voice, TMs normal, pharynx normal. No conjunctival pallor. No photophobia, scleral icterus. Neck: Supple. Trachea midline. No tenderness, rigidity, carotid bruit, stridor , lymphadenopathy, or thyromegaly. Respiratory/Chest: Lungs CTAB. No shortness of breath, chest tenderness, respiratory distress, accessory muscle use. No crackles, rales, rhonchi, stridor , wheezing, dullness Cardiovascular: RRR. S1, S2. No JVD, murmur, bradycardia, tachycardia. Vascular Pulses: Dorsalis-Pedis (R): 2+, Dorsalis-Pedis (L): 2+ Gastrointestinal/Abdominal: Periumbilical, RUQ, and epigastric TTP. Normal bowel sounds. Abdomen soft, non-distended. No tenderness or rebound tenderness. No organomegaly, pulsatile mass, guarding, hernia, hepatomegaly, splenomegaly. Lymphatic: No adenopathy, tenderness. Musculoskeletal/Extremities: Tenderness to midline spine at L3-L5. Normal inspection. FROM of all extremities, normal capillary refill. Pelvis Stable. No CVA tenderness. No tenderness to extremities, pedal edema, swelling, erythema or deformity. Integumentary: Appropriate color, dry, warm. No cyanosis, erythema, jaundice or rash Neurologic: hair dresser II-XII intact. Fully oriented, alert. Appropriate mood/affect. Motor strength 5/5. No appreciable EOM palsy, facial droop or sensory deficit. Psych: Anxious, pacing. 02/16/19 02:54 Past History - Past Medical History Allergies/Adverse Reactions: Allergies Allergy/AdvReac Type Severity Reaction Status Date / Time escitalopram Allergy Mild Verified 11/11/18 22:29 dog dander Allergy Verified 05/06/18 15:03 Penicillins Allergy Verified 05/06/18 15:03 wool Allergy Verified 05/06/18 15:03 Home Medications: Ambulatory Orders Levothyroxine Sodium [Synthroid] 88 mcg PO DAILY 02/03/18 Nitrofurantoin Monohyd/M-Cryst [Macrobid -] 100 mg PO BID #10 capsule 11/11/18 Nitrofurantoin Monohyd/M-Cryst [Macrobid -] 100 mg PO BID #14 capsule 02/15/19 Cyclobenzaprine HCl [Flexeril 10 mg] 10 mg PO HS PRN #20 tablet 02/16/19 Diclofenac Sodium 75 mg PO BID #30 tablet. 02/16/19 COPD: No HTN: Yes Thyroid Disease: Yes (Hyperthyroid) Other medical history: HEMORROIDS - Surgical History Appendectomy: Yes - Suicide/Smoking/Psychosocial Hx Smoking History: Never smoked Have you smoked in the past 12 months: No Information on smoking cessation initiated: No Hx Alcohol Use: No Drug/Substance Use Hx: No Substance Use Type: None Hx Substance Use Treatment: No *Physical Exam - Vital Signs Last Vital Signs Temp Pulse Resp BP Pulse Ox 98.9 F 96 H 19 110/82 97 02/15/19 17:15 02/15/19 17:15 02/15/19 17:15 02/15/19 17:15 02/15/19 17:15 ED Treatment Course - LABORATORY CBC & Chemistry Diagram: 02/15/19 20:35 02/15/19 20:35 Medical Decision Making - Medical Decision Making 02/16/19 02:53 Patient hx of hyperthyroidism (on methimazole) reports pain to R lower back, hip after lifting a friend "to help her." 5-6 days . Also reports pain with urination. -labs -ua, upreg -ekg -toradol -CTAP, CTLspine UA positive for UTI. - macrobid and pyridium 02/16/19 02:55 pt persistently complaining of back pain after administratoin of toradol -valium CTAP results - small umbilical hernia CT Lspine shows disc degeneration and forminal stenosis rx for macrobid for uti sent, also rxed diclofenac and cyclobenzaprine for lower back pain Advised patient to take medication as prescribed and follow up with PCP. Referral for ortho and neuro given .Advised patient of signs and symptoms for return to ED. Patient verbalized understanding and agrees to plan. 02/16/19 02:59 *DC/Admit/Observation/Transfer Diagnosis at time of Disposition: Nonalcoholic fatty liver disease, Degenerative disc disease, lumbar Abdominal pain Qualifiers: Abdominal location: right upper quadrant Qualified Code(s): R10.11 - Right upper quadrant pain Umbilical hernia Qualifiers: Obstruction and gangrene presence: without obstruction or gangrene Qualified Code(s): K42.9 - Umbilical hernia without obstruction or gangrene - Discharge Dispostion Disposition: HOME Condition at time of disposition: Stable Decision to Admit order: No - Prescriptions Prescriptions: Cyclobenzaprine HCl [Flexeril 10 mg] 10 mg PO HS PRN #20 tablet PRN Reason: Back Pain Diclofenac Sodium 75 mg PO BID #30 tablet. Nitrofurantoin Monohyd/M-Cryst [Macrobid -] 100 mg PO BID #14 capsule - Referrals Referrals: Renaldo Patricia MD [Primary Care Provider] - Luiz Chaney MD [Staff Physician] - Gonzalez Francis DO [Staff Physician] - - Patient Instructions Printed Discharge Instructions: DI for Degenerative Disc Disease, DI for Nonalcoholic Fatty Liver Disease - Post Discharge Activity
[2019-02-15] MEDS ORDERED: hydrOXYzine HCL 25 MG TABLET (FP) PO ONE (19:38)
[2019-02-15] MEDS ORDERED: KETOROLAC TROMETHAMINE 30 MG/1 ML VIAL IVPUSH ONE (19:41)
[2019-02-15] MEDS ORDERED: KETOROLAC TROMETHAMINE 30 MG/1 ML VIAL ONE (20:02)
[2019-02-15 21:01] LABS: BASO % 0.7 % (0-2.0); EOS % 1.7 % (0-4.5); HEMATOCRIT 39.8 % (32.4-45.2); HEMOGLOBIN 13.5 GM/dL (10.7-15.3); LYMPH % 32.2 % (8-40); MCH 28.4 pg (25.7-33.7); MCHC 34.1 g/dl (32.0-36.0); MEAN CELL VOLUME 83.4 fl (80-96); MEAN PLT VOLUME 8.2 fl (7.5-11.1); MONO % 6.5 % (3.8-10.2); NEUT % 58.9 % (42.8-82.8); PLATELET COUNT 288 K/MM3 (134-434); RBC 4.77 M/mm3 (3.60-5.2); RDW 13.7 % (11.6-15.6); WHITE BLOOD COUNT 7.4 K/mm3 (4.0-10.0)
[2019-02-15 21:25] LABS: ALBUMIN 4.1 g/dl (3.4-5.0); BILIRUBIN,TOTAL 0.4 mg/dL (0.2-1); BLOOD UREA NITROGEN 18.6 mg/dL (7-18); CALCIUM 9.7 mg/dL (8.5-10.1); CREATININE 0.9 mg/dL (0.55-1.3); POTASSIUM 4.1 mmol/L (3.5-5.1); TOT PROT 7.7 g/dl (6.4-8.2)
[2019-02-15 21:27] LABS: MAGNESIUM 2.6 mg/dL (1.8-2.4)
[2019-02-15] MEDS ORDERED: SODIUM CHLORIDE 0.9% 500 ML INFUS.BAG IV ONE (22:09)
[2019-02-15 22:32] LABS: EPI CELLS 3.1 /HPF (0-5/HPF); HYALINE CASTS 29 /lpf (0-8); URINE APPEARANCE CLEAR; URINE BACTERIA 21.2 /hpf (NEGATIVE); URINE BILIRUBIN NEGATIVE (NEGATIVE); URINE COLOR YELLOW; URINE GLUCOSE (UA) NEGATIVE (NEGATIVE); URINE KETONE TRACE (NEGATIVE); URINE LEUK ESTERASE 1+ (NEGATIVE); URINE NITRITE NEGATIVE (NEGATIVE); URINE PROTEIN NEGATIVE (NEGATIVE); URINE RBC 5 /hpf (0-4); URINE WBC 13 /hpf (0-5)
[2019-02-15] MEDS ORDERED: diazePAM 5 MG TABLET PO ONE (22:32)
[2019-02-15] MEDS ORDERED: PHENAZOPYRIDINE HCL 100 MG TABLET (FP) PO ONE (22:34)
[2019-02-15 22:36] VITALS: BP 114/83; PULSE 69
[2019-02-15] MEDS ORDERED: NITROFURANTOIN MACROCRYSTAL 50 MG CAPSULE (FP) PO SCH (22:45)
[2019-02-15] MEDS ORDERED: NITROFURANTOIN MACROCRYSTAL 50 MG CAPSULE (FP) ONE (23:45)
[2019-02-15] MEDS ORDERED: PHENAZOPYRIDINE HCL 100 MG TABLET (FP) ONE (23:45)
[2019-02-15] MEDS ORDERED: diazePAM 5 MG TABLET ONE (23:46)
--- NOTE | 2019-02-16 12:50 | EKG ---
Test Reason : Blood Pressure : / mmHG Vent. Rate : 059 BPM Atrial Rate : 059 BPM P-R Int : 168 ms QRS Dur : 078 ms QT Int : 412 ms P-R-T Axes : 049 074 068 degrees QTc Int : 407 ms SINUS BRADYCARDIA POSSIBLE LEFT ATRIAL ENLARGEMENT NONSPECIFIC T WAVE ABNORMALITY ABNORMAL ECG WHEN COMPARED WITH ECG OF 11-NOV-2018 19:11, T WAVE INVERSION NOW EVIDENT IN ANTEROLATERAL LEADS Confirmed by MARLENI BEAVER, HANK ([id number]) on 02/16/2019 12:49:57 PM Referred By: Confirmed By:HANK YEPEZ MD
== END 2019-02-16 00:40 | disposition home or self-care (01) ==
LOC: JER 17:13
PROC: 3E0333Z Introduction of Anti-inflammatory into Peripheral Vein, Percutaneous Approach (ICD-10-PCS; principal; 2019-02-15)
DX: N39.0 Urinary tract infection, site not specified (principal); R10.11 Right upper quadrant pain; M51.36 Other intervertebral disc degeneration, lumbar region; K42.9 Umbilical hernia without obstruction or gangrene; K76.0 Fatty (change of) liver, not elsewhere classified
CPT/HCPCS: 36415; 72131-TC; 74177-TC; 80053; 81003; 82550; 83690; 83735; 84443; 84484; 84703; 85025; 93005; 93010; 99283-25

== ENCOUNTER 2019-03-17 14:15 | Emergency (ER) | payer SELFPAY ==
[2019-03-17 14:31] VITALS: TEMP 98.3; BMI 24.2
[2019-03-17] MEDS ORDERED: SODIUM CHLORIDE 1,000 ML IV STA (14:49)
[2019-03-17] MEDS ORDERED: KETOROLAC TROMETHAMINE 30 MG/1 ML VIAL IVPUSH ONE (14:49)
[2019-03-17] MEDS ORDERED: KETOROLAC TROMETHAMINE 30 MG/1 ML VIAL ONE (15:50)
--- NOTE | 2019-03-17 15:50 | PDOC ---
History of Present Illness - General Chief Complaint: Headache Stated Complaint: HEADACHE Time Seen by Provider: 03/17/19 14:48 History Source: Patient Exam Limitations: No Limitations - History of Present Illness Initial Comments: 03/17/19 14:44 54-year-old female presents to ED with multiple complaints including headache, mild dizziness, difficulty swallowing, difficulty taking deep breath, mild abdominal cramping, and leg pain intermittently for the past 2 weeks. Patient states history of hyperthyroidism and feels very anxious. Patient states went to her PCP last week and was given azithromycin along with prednisone which she states she completed with no resolution of symptoms. Patient denies visual changes, nausea, fever, chills, chest pain, palpitations, neck stiffness, cough , diarrhea, or constipation. Patient does state mild dysuria for the past 2 days Timing/Duration: changing over time Severity: moderate Associated Symptoms: reports: headaches, other Past History - Past Medical History Allergies/Adverse Reactions: Allergies Allergy/AdvReac Type Severity Reaction Status Date / Time escitalopram Allergy Mild Verified 03/17/19 14:28 dog dander Allergy Verified 03/17/19 14:28 Penicillins Allergy Verified 03/17/19 14:28 wool Allergy Verified 03/17/19 14:28 Home Medications: Ambulatory Orders Levothyroxine Sodium [Synthroid] 88 mcg PO DAILY 02/03/18 Nitrofurantoin Monohyd/M-Cryst [Macrobid -] 100 mg PO BID #10 capsule 11/11/18 Nitrofurantoin Monohyd/M-Cryst [Macrobid -] 100 mg PO BID #14 capsule 02/15/19 Cyclobenzaprine HCl [Flexeril 10 mg] 10 mg PO HS PRN #20 tablet 02/16/19 Diclofenac Sodium 75 mg PO BID #30 tablet. 02/16/19 Amoxicillin/Potassium Clav [Augmentin 875-125 Tablet] 1 each PO BID #14 tablet 03/17/19 Fluticasone Prop 0.05% Nasal [Flonase -] 1 - 2 spray NS BID #1 spray.pump COPD: No HTN: Yes Thyroid Disease: Yes (Hyperthyroid) - Surgical History Appendectomy: Yes - Suicide/Smoking/Psychosocial Hx Smoking History: Never smoked Have you smoked in the past 12 months: No Information on smoking cessation initiated: No Hx Alcohol Use: No Drug/Substance Use Hx: No Substance Use Type: None Hx Substance Use Treatment: No Patient Lives Alone: No Review of Systems - Review of Systems Able to Perform ROS?: Yes Constitutional: Yes: Loss of Appetite, Weakness HEENTM: Yes: Difficulty Swallowing Respiratory: No: Symptoms reported Cardiac (ROS): Yes: Other ABD/GI: Yes: Abdominal cramping : Yes: Dysuria Musculoskeletal: Yes: Muscle Pain (bilateral upper legs) Integumentary: No: Symptoms Reported Neurological: Yes: Headache, Dizziness (mild with standing). No: Numbness, Weakness Endocrine: No: Symptoms Reported Hematologic/Lymphatic: No: Symptoms Reported *Physical Exam - Vital Signs Last Vital Signs Temp Pulse Resp BP Pulse Ox 98.3 F 93 H 17 111/78 97 03/17/19 14:28 03/17/19 14:28 03/17/19 14:28 03/17/19 14:28 03/17/19 14:28 - Physical Exam General Appearance: Yes: Nourished, Appropriately Dressed. No: Apparent Distress HEENT: positive: EOMI, VANDANA, TMs Normal, Pharynx Normal. negative: Pale Conjunctivae Neck: positive: Supple, Tender lateral (left side, + palpable soft semi fixed mass to lat aspect of thyroid gland) Respiratory/Chest: positive: Lungs Clear, Normal Breath Sounds. negative: Respiratory Distress, Accessory Muscle Use Cardiovascular: positive: Regular Rhythm, Regular Rate. negative: Murmur Gastrointestinal/Abdominal: positive: Soft. negative: Tenderness Integumentary: positive: Normal Color, Warm, Moist Neurologic: positive: Motor Strength 5/5 (ambulatory). negative: Normal Mood/ Affect (anxious) ED Treatment Course - LABORATORY CBC & Chemistry Diagram: 03/17/19 16:45 03/17/19 16:45 - RADIOLOGY Radiology Studies Ordered: Category Date Time Status SOFT TISSUE NECK AND HEAD US [US] Stat Ultrasound 03/17/19 15:34 Ordered Medical Decision Making - Medical Decision Making 03/17/19 15:05 Complaint: Patient complains of mild generalized headache which she describes a throbbing sensation for the past 2 weeks patient also complaining of difficulty swallowing feeling as if she is choking and concerned that it may be her thyroid versus an allergic reaction , patient also complaining of chest soreness secondary to frequent gagging abdominal cramping greater in the upper region and upper leg soreness continuously for the past week Exam: Patient appears very anxious and crying and unable to focus on one complaint but able to be rerouted with verbal redirection patient speaking full sentences, no palpable thyroid mass abdomen soft and nontender, ambulatory Plan: labs, urine, IV fluids, soft tissue neck ultrasound, and Toradol ordered *DC/Admit/Observation/Transfer Diagnosis at time of Disposition: Sinusitis - Discharge Dispostion Disposition: HOME Condition at time of disposition: Stable - Prescriptions Prescriptions: Amoxicillin/Potassium Clav [Augmentin 875-125 Tablet] 1 each PO BID #14 tablet Fluticasone Prop 0.05% Nasal [Flonase -] 1 - 2 spray NS BID #1 spray.pump - Referrals Referrals: Glenroy Bullock MD [Staff Physician] - 2 Days - Patient Instructions Printed Discharge Instructions: DI for Sinusitis Additional Instructions: Thank you for choosing [facility] [place]. It was a pleasure taking care of you. You were started on antibiotics for possible sinus infection. Please take as directed Use Flonase nasal spray Also recommend Nedi-Pot You were referred to ENT for further evaluation Your TSH levels were low; please follow-up with your PCP regarding this. Return to the Emergency Department if your symptoms worsen or persist or have other concerning symptoms. - Post Discharge Activity
[2019-03-17 17:19] LABS: BASO % 0.6 % (0-2.0); EOS % 0.1 % (0-4.5); HEMATOCRIT 41.8 % (32.4-45.2); HEMOGLOBIN 13.8 GM/dL (10.7-15.3); LYMPH % 12.2 % (8-40); MCH 27.6 pg (25.7-33.7); MCHC 32.9 g/dl (32.0-36.0); MEAN PLT VOLUME 8.3 fl (7.5-11.1); MONO % 1.8 % (3.8-10.2); NEUT % 85.3 % (42.8-82.8); PLATELET COUNT 319 K/MM3 (134-434); RBC 4.98 M/mm3 (3.60-5.2); RDW 13.7 % (11.6-15.6); WHITE BLOOD COUNT 8.8 K/mm3 (4.0-10.0)
[2019-03-17 17:23] LABS: EPI CELLS 1.3 /HPF (0-5/HPF); HYALINE CASTS 7 /lpf (0-8); URINE APPEARANCE CLEAR; URINE BILIRUBIN NEGATIVE (NEGATIVE); URINE COLOR YELLOW; URINE GLUCOSE (UA) NEGATIVE (NEGATIVE); URINE KETONE 1+ (NEGATIVE); URINE LEUK ESTERASE 1+ (NEGATIVE); URINE NITRITE NEGATIVE (NEGATIVE); URINE PROTEIN NEGATIVE (NEGATIVE); URINE RBC 2 /hpf (0-4); URINE UROBILINOGEN 0.2 mg/dL (0.2-1.0); URINE WBC 3 /hpf (0-5)
[2019-03-17 17:55] LABS: ALBUMIN 3.9 g/dl (3.4-5.0); BILIRUBIN,TOTAL 0.2 mg/dL (0.2-1); BLOOD UREA NITROGEN 21.1 mg/dL (7-18); CALCIUM 9.6 mg/dL (8.5-10.1); CREATININE 0.8 mg/dL (0.55-1.3); POTASSIUM 4.5 mmol/L (3.5-5.1); TOT PROT 7.6 g/dl (6.4-8.2)
[2019-03-17] MEDS ORDERED: AMOX TR/POT CLAV 875MG/125MG TABLETS (FP) PO ONE (18:24)
--- NOTE | 2019-03-17 18:32 | PDOC ---
*Physical Exam - Vital Signs Last Vital Signs Temp Pulse Resp BP Pulse Ox 98.3 F 93 H 17 111/78 97 03/17/19 14:28 03/17/19 14:28 03/17/19 14:28 03/17/19 14:28 03/17/19 14:28 ED Treatment Course - LABORATORY CBC & Chemistry Diagram: 03/17/19 16:45 03/17/19 16:45 - ADDITIONAL ORDERS Additional order review: Laboratory Results 03/17/19 03/17/19 16:45 16:45 Sodium 141 Potassium 4.5 Chloride 107 Carbon Dioxide 28 Anion Gap 6 L BUN 21.1 H Creatinine 0.8 Est GFR (CKD-EPI)AfAm 98.24 Est GFR (CKD-EPI)NonAf 84.76 Random Glucose 124 H Calcium 9.6 Total Bilirubin 0.2 AST 14 L ALT 27 Alkaline Phosphatase 66 Total Protein 7.6 Albumin 3.9 TSH 0.15 L Urine Color Yellow Urine Appearance Clear Urine pH 7.0 D Ur Specific [place] 1.022 Urine Protein Negative Urine Glucose (UA) Negative Urine Ketones 1+ H Urine Blood Negative Urine Nitrite Negative Urine Bilirubin Negative Urine Urobilinogen 0.2 Ur Leukocyte Esterase 1+ H Urine WBC (Auto) 3 Urine RBC (Auto) 2 Urine Casts (Auto) 7 U Epithel Cells (Auto) 1.3 Urine Bacteria (Auto) 1.0 03/17/19 16:45 RBC 4.98 MCV 84.0 MCHC 32.9 RDW 13.7 MPV 8.3 Neutrophils % 85.3 H D Lymphocytes % 12.2 D Monocytes % 1.8 L Eosinophils % 0.1 D Basophils % 0.6 - Medications Given in the ED: ED Medications Discontinued Medications Generic Name Dose Route Start Last Admin Trade Name Freq PRN Reason Stop Dose Admin Sodium Chloride 1,000 mls @ 1,000 mls/hr 03/17/19 14:49 03/17/19 16:45 Normal Saline - IV 03/17/19 15:48 1,000 mls/hr ASDIR STA Administration Ketorolac Tromethamine 30 mg 03/17/19 14:49 03/17/19 16:45 Toradol Injection - IVPUSH 03/17/19 14:50 30 mg ONCE ONE Administration Medical Decision Making - Medical Decision Making Patient signed out to me by JACQUES Mccauley US soft tissue neck with no changes from prior Labs reviewed TSH is low - patient is already taking Methimazole Patient advised she needs to f/u regarding these lab results; was given copy of reports Patient mentions c/o nasal congestion, sinus pain and GORDON x 2 weeks Also with postnasal drip Has had sinus issues in the past Given sxs for 2 weeks, will start on Augmentin, refer to ENT Stable for dc 03/17/19 18:27 *DC/Admit/Observation/Transfer Diagnosis at time of Disposition: Sinusitis Qualifiers: Sinusitis location: unspecified location Chronicity: acute Recurrence: recurrent Qualified Code(s): J01.91 - Acute recurrent sinusitis, unspecified - Discharge Dispostion Disposition: HOME Condition at time of disposition: Stable Decision to Admit order: No - Prescriptions Prescriptions: Amoxicillin/Potassium Clav [Augmentin 875-125 Tablet] 1 each PO BID #14 tablet Fluticasone Prop 0.05% Nasal [Flonase -] 1 - 2 spray NS BID #1 spray.pump - Referrals Referrals: Glenroy Bullock MD [Staff Physician] - 2 Days - Patient Instructions Printed Discharge Instructions: DI for Sinusitis Additional Instructions: Thank you for choosing [facility]. It was a pleasure taking care of you. You were started on antibiotics for possible sinus infection. Please take as directed Use Flonase nasal spray Also recommend Nedi-Pot You were referred to ENT for further evaluation Your TSH levels were low; please follow-up with your PCP regarding this. Return to the Emergency Department if your symptoms worsen or persist or have other concerning symptoms. - Post Discharge Activity
[2019-03-17] MEDS ORDERED: AMOX TR/POT CLAV 875MG/125MG TABLETS (FP) ONE ×2 (18:35→18:55)
[2019-03-17 19:05] VITALS: BP 128/73; PULSE 67
== END 2019-03-17 19:05 | disposition home or self-care (01) ==
LOC: JER 14:15
PROC: 3E0333Z Introduction of Anti-inflammatory into Peripheral Vein, Percutaneous Approach (ICD-10-PCS; principal; 2019-03-17)
PROC: 3E0337Z Introduction of Electrolytic and Water Balance Substance into Peripheral Vein, Percutaneous Approach (ICD-10-PCS; 2019-03-17)
DX: J01.91 Acute recurrent sinusitis, unspecified (principal); I10 Essential (primary) hypertension; E05.90 Thyrotoxicosis, unspecified without thyrotoxic crisis or storm; Z88.0 Allergy status to penicillin
CPT/HCPCS: 36415; 76536-TC; 80053; 81003; 84443; 85025; 87086; 99283-25; J7030